=== PATIENT | female | born 1955 | race Caucasian/White ===

== ENCOUNTER 2019-05-12 13:22 | Emergency (ER) | payer MEDICARE, OTHER, SELFPAY ==
[2019-05-12 13:27] VITALS: BP 170/88; PULSE 71; RESP 18; TEMP 36.6; O2SAT 98
--- NOTE | 2019-05-12 13:39 | ED.GENADUL_ITS ---
Discharge Plan Disposition Patient Disposition: HOME Condition: Improving Discharge Details Chief Complaint: EarProblem Clinical Impression: Bilateral acute otitis media Primary Care Provider: Kavya Pendleton ED Provider: Erick Cunningham Home Meds and New Rx's Prescriptions: New amoxicillin-pot clavulanate 875-125 mg tablet 1 tab PO BID 10 Days Qty: 20 RF: 0 Continued multivitamin [Once Daily] 1 EACH tablet 1 ea PO RF: 0 metformin 500 MG tablet 500 mg PO BID RF: 0 amlodipine-benazepril [Lotrel] 1 EACH capsule 1 ea PO RF: 0 peg 400-propylene glycol [Systane (propylene glycol)] 15 ML drops 15 ml Ophthalmic RF: 0 fexofenadine-pseudoephedrine [Ameena-D 24 Hour] 1 EACH tablet extended release 24 hr 1 tab-cap PO DAILY RF: 0 omega 3-jpn-ykl-fish oil 1,000 MG capsule 2,000 mg PO RF: 0 bimatoprost [Lumigan] 5 ML drops 5 ml Ophthalmic RF: 0 turmeric root extract 500 MG capsule 500 mg PO RF: 0 calcium-vitamin D3-vitamin K 1 EACH tablet,chewable 2 ea PO DAILY RF: 0 bee pollen 550 MG capsule 550 mg PO RF: 0 ginkgo biloba leaf extract 60 MG tablet 120 mg PO RF: 0 CATNIP RF: 0 (DME) blood sugar diagnostic [FreeStyle Test] 1 EACH strip 1 ea Miscellaneous DIRECTED. RF: 0 meclizine 25 MG tablet,chewable 25 mg PO DAILY RF: 0 (DME) lancets [FreeStyle Lancets] 1 EACH misc 1 ea Miscellaneous DIRECTED RF: 0 DUO NEB 0.5 - 2.5 mg Inhalation QID RF: 0 fluticasone propionate [Flovent Diskus] 50 MCG blister with device 50 mcg Inhalation BID RF: 0 levothyroxine 25 MCG tablet 25 mcg PO DAILY RF: 0 gemfibrozil [Lopid] 600 MG tablet 600 mg PO BID RF: 0 omeprazole 20 MG capsule,delayed release(DR/EC) 20 mg PO DAILY RF: 0 estradiol [Estrace] 42.5 GM cream 1 g VG HS RF: 0 albuterol sulfate [ProAir HFA] 8.5 GM HFA aerosol inhaler 2 puff Inhalation Q4H PRN RF: 0 fluticasone propionate [Flonase Allergy Relief] 9.9 ML spray,suspension 9.9 ml NS DAILY RF: 0 cetirizine [Zyrtec] 10 MG tablet 10 mg PO DAILY RF: 0 chlordiazepoxide HCl 5 MG capsule 5 mg PO ONE TAB PM,2 TABS HS RF: 0 amlodipine-benazepril [Lotrel] 1 EACH capsule 1 tab-cap PO DAILY RF: 0 Discharge Instructions Instructions: Otitis Media (ED) Additional Instructions: Continue all previously prescribed medications. Return for worsening discomfort or any other acute concern. Take Augmentin as prescribed. Follow-up with regular doctor if not improving in 5 to 7 days time Medical Decision Making 63-year-old female with recurrent ear infections over her lifetime. 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 She presents with bilateral sinus pain and pressure with ear pain this morning. Similar to previous episodes of inner ear infection. Her vital signs are unremarkable. Her exam is consistent with a developing otitis medial likely due to\early sinusitis. She is had good success with Augmentin in the past which I will prescribe her today. She is stable and appropriate for discharge to home. HPI General Mode of arrival: ambulatory . Date/Time Provider Initiated Documentation: 05/12/19 13:34 . Limitations to Documentation: no limitations . Information obtained by: patient . History of Present Illness 63 year old F presents to the emergency department with the chief complaint of Bilateral ear pain and sinus pressure, described as moderate and similar to prior episodes, Quality is described as dull and constant, and is localized to the head. Patient reports no radiation. Patient started experiencing this day(s) and it has been constant. No relieving factors improve symptom(s), No exacerbating factors reported . Patient notes cough. Patient did receive the following treatments prior to arrival, none Related Data Home Medications Medication Instructions Recorded Confirmed Catnip 01/29/16 amlodipine-benazepril [Lotrel] 1 ea PO 01/29/16 bee pollen 550 mg PO 01/29/16 bimatoprost [Lumigan] 5 ml OPHTHALMIC script 01/29/16 calcium-vitamin D3-vitamin K 2 ea PO DAILY tab.chew 01/29/16 09/04/17 fexofenadine-pseudoephedrine 1 tab-cap PO DAILY tab-cap 01/29/16 09/04/17 [Ameena-D 24 Hour] ginkgo biloba leaf extract 120 mg PO 01/29/16 metformin 500 mg PO BID tab-cap 01/29/16 09/04/17 multivitamin [Once Daily] 1 ea PO 01/29/16 omega 4-qmi-wpj-fish oil 2,000 mg PO 01/29/16 peg 400-propylene glycol [Systane 15 ml OPHTHALMIC 01/29/16 (propylene glycol)] turmeric root extract 500 mg PO 01/29/16 Duo Neb 0.5 - 2.5 mg INHALATION QID 05/22/17 09/04/17 albuterol sulfate [ProAir HFA] 2 puff INHALATION Q4H PRN inhaler 05/22/1709/04 blood sugar diagnostic [FreeStyle strip 05/22/17 09/04/17 Test] estradiol [Estrace] 1 g VG HS 05/22/17 09/04/17 fluticasone propionate [Flonase 9.9 ml NS DAILY 05/22/17 09/04/17 Allergy Relief] fluticasone propionate [Flovent 50 mcg INHALATION BID disk 05/22/17 09/04/17 Diskus] gemfibrozil [Lopid] 600 mg PO BID tab-cap 05/22/17 09/04/17 lancets [FreeStyle Lancets] ea 05/22/17 09/04/17 levothyroxine 25 mcg PO DAILY tab-cap 05/22/17 09/04/17 meclizine 25 mg PO DAILY tab-cap 05/22/17 09/04/17 omeprazole 20 mg PO DAILY tab-cap 05/22/17 09/04/17 amlodipine-benazepril [Lotrel] 1 tab-cap PO DAILY tab-cap 09/26/17 cetirizine [Zyrtec] 10 mg PO DAILY tab-cap 09/26/17 chlordiazepoxide HCl 5 mg PO ONE TAB PM,2 TABS HS 09/26/17 tab-cap amoxicillin-pot clavulanate 1 tab PO BID 10 Days #20 tab 05/12/19 Previous Rx's Medication Instructions Recorded amoxicillin-pot clavulanate 1 tab PO BID 10 Days #20 tab 05/12/19 Allergies Allergy/AdvReac Type Severity Reaction Status Date / Time tetanus toxoid, adsorbed Allergy Intermediate edema Unverified 11/08/17 12:26 BHUMI Inhibitors Allergy Unknown Unverified 11/08/17 12:26 codeine Allergy Unverified 11/08/17 12:26 diazepam Allergy Unverified 11/08/17 12:26 egg Allergy Unverified 11/08/17 12:26 erythromycin base Allergy Unverified 11/08/17 12:26 fentanyl Allergy Unverified 11/08/17 12:26 levofloxacin Allergy Unverified 11/08/17 12:26 morphine Allergy Unverified 11/08/17 12:26 nitrofurantoin Allergy Unverified 11/08/17 12:26 [From Macrobid] nitrofurantoin Allergy Unverified 11/08/17 12:26 macrocrystalline [From Macrobid] oxycodone Allergy Unverified 11/08/17 12:26 pistachio nut Allergy Unverified 11/08/17 12:26 shellfish derived Allergy Unverified 11/08/17 12:26 Sulfa (Sulfonamide Allergy Unverified 11/08/17 12:26 Antibiotics) sulfur [From Sulfur-8] Allergy Unverified 11/08/17 12:26 tomato Allergy Unverified 11/08/17 12:26 prednisone AdvReac Unverified 11/08/17 12:26 pisachios Allergy Uncoded 09/04/17 11:16 General Stated Complaint: EarProblem URI: 5 Review of Systems Narrative: No fever, chills. Is taking liquids solids by mouth. Recent diagnosis of Canchola's palsy for which she is taking dexamethasone. No vomiting. No shortness of breath. 6 systems reviewed and otherwise negative FOR[facility], [facility] Social History Smoking/Tobacco Use Status: Never Alcohol Intake: never Drug use: Never Do you feel safe at home: Yes Do you feel safe in your relationship?: Yes Exam Narrative Exam Narrative: GEN: awake, alert, oriented 3. Pleasant, well groomed, interactive. HEAD: Normocephalic, atraumatic ENT: Mucous membranes moist, oropharynx unremarkable, tympanic membranes distended with slight erythema and loss of light reflex bilaterally, bilateral maxillary sinus tenderness to percussion. External ear exam unremarkable EYES: PERRL, EOMI NECK: Full ROM, no SUSHMA, no menigismus CHEST/RESP: Nontender, clear to auscultation bilateral, no wheeze/rhonchi/rales CARDIOVASCULAR: RRR, no murmur, rub ryan. 2+ Rad pulse bilateral ABDOMEN: Soft, nontender, no mass. +Bowel sounds EXT: Full ROM, no edema, no rash Neuro: Grossly normal neurologic exam, conversant, interactive. Psych: Speech fluent, thoughts congruent, affect normal Course Vital Signs Vital signs: Vital Signs Temperature 36.6 C 05/12/19 13:27 Pulse 71 05/12/19 13:27 Respiratory Rate 18 05/12/19 13:27 Blood Pressure 170/88 H 05/12/19 13:27 Pulse Oximetry 98 05/12/19 13:27 Temperature 36.6 C 05/12/19 13:27 Temperature Source Temporal Artery Scan 05/12/19 13:27 Pulse 71 05/12/19 13:27 Respiratory Rate 18 05/12/19 13:27 Blood Pressure 170/88 H 05/12/19 13:27 Pulse Oximetry 98 05/12/19 13:27 Oxygen Delivery Method Room Air 05/12/19 13:27 Oxygen Flow Rate 0 05/12/19 13:27 Pain Level 10 05/12/19 13:27
== END 2019-05-12 13:56 | disposition home or self-care (01) ==
PROVIDERS: Emergency Provider Emergency Medicine; PCP Nurse Practitioner
DX: H66.93 Otitis media, unspecified, bilateral (principal)
CPT/HCPCS: 99283

== ENCOUNTER 2022-02-25 01:43 | Outpatient (CLI) | payer MEDICARE, OTHER, SELFPAY ==
--- OUTSIDE RECORDS SUMMARY | 2022-02-25 01:45 | XMS_ITS ---
:1955 Author Care Team Providers Name Role Phone DR. RENALDO MEHTA Primary Care Provider [phone] DR. RENALDO MEHTA Referring Provider [phone] Allergies Code Code System Name Reaction Severity Status Onset Tripp Inhibitors ? ? Active ? 2670 RxNorm Codeine ? ? Active ? 585737 RxNorm Levaquin ? ? Active ? 502815 RxNorm Macrobid ? ? Active ? 7052 RxNorm Morphine ? ? Active ? 18250 RxNorm Percocet ? ? Active ? Tetanus and Diphtheria ? ? Active ? Toxoids Medications Name Status Start Date Stop Date ? ? albuterol sulfate concentrate 5 mg/mL(0.5 %) solution for nebulization Completed ? 11/13/2018 Inhale 0.5 mL as needed by inhalation route. apple cider vinegar Active ? Not availabl e 2 caps daily. Calcium 600 Active ? Not available chlordiazepoxide 5 mg capsule Active ? No t available Take 1 capsule 3 times a day by oral route. Estrace 0.01% (0.1 mg/gram) vaginal cream Active ? Not available Insert 1 g every week by vaginal route. Flonase Allergy Relief 50 mcg/actuation nasal spray,suspension A ctive ? Not available [place] 1 spray every day by intranasal route. Flovent Diskus 100 mcg/actuation powder for inhalation Active ? Not available Inhale 1 puff twice a day by inhalation route. Flovent Diskus 50 mcg/actuation powder for inhalation Completed ? 11/01/2017 Inhale 2 puffs twice a day by inhalation route. FreeStyle Lancets Active ? Not available FreeStyle Lite Strips Active ? Not availa ble glyburide Completed ? 08/25/2021 5 mg one tab twice daily levothyroxine 25 mcg tablet Active ? Not available take one and 1/2 tablet by mouth with p skinny glass of water every morning on hour before eating levothyroxine 50 mcg tablet Active ? Not available Take one tablet every morning at least one hour before eating, drinking any beverages, taking any other medications, vitmains or minerals. Lopid 600 mg tablet Active ? Not availabl e Take 1 tablet twice a day by oral route. Lotrel 5 mg-20 mg capsule Active ? Not av ailable Take 2 capsules every day by oral route. Lumigan 0.01 % eye drops Active ? Not franck ilable magnesium 500 mg tablet Active ? Not avai lable Take 2 tablets twice a day by oral route. meclizine 25 mg tablet Active ? Not avail able Take 1 tablet twice a day by oral route as needed. metformin 500 mg tablet Active ? Not avai lable Take 1 tablet twice a day by oral route. metoprolol succinate ER 50 mg tablet,extended release 24 hr Comp leted ? 04/25/2017 Take 1 tablet every day by oral route. nettle leaf (urtica dioica) 425 mg capsule Active ? Not available Take 1 capsule twice a day by oral route. omega 3 350 mg-dha 235 mg-epa 90 mg-fish oil 597 mg capsule,patrick y rel Active ? Not available Take 1 capsule every day by oral route. omeprazole Active ? Not available as needed oxygen Active ? Not available 4Liters when sleeping phenazopyridine 200 mg tablet Active ? No t available Take 1 tablet 3 times a day by oral route as needed. Stool Softener 100 mg tablet Active ? Not available Take 4 tablets every day by oral route in the evening. Problems Name Status Onset Date Source ? Hypothyroidism Active 05/16/2016 ? Hyperparathyroidism Active 05/16/2016 ? Hyperprolactinemia Active 05/16/2016 ? Hypertriglyceridemia Active 05/16/2016 ? Obesity Active 05/16/2016 ? Anxiety Active 05/16/2016 ? Chronic Fatigue Syndrome Active 05/16/2016 ? 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 Glaucoma Active 05/16/2016 ? Hearing Loss Active 05/16/2016 ? Essential Hypertension Active 05/16/2016 ? Acute Sinusitis Active 05/16/2016 ? Rhinitis Active 05/16/2016 ? Kidney Stone Active 05/16/2016 ? Galactorrhea Not Associated with Childbirth Active 04/18 ? Vaginitis Active 05/16/2016 ? Fibromyalgia Active 05/16/2016 ? Scoliosis Deformity of Spine Active 05/16/2016 ? 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 Type II Diabetes Mellitus Uncontrolled Active 9 ? Fatigue Active 02/20/2019 ? Type 2 Diabetes Mellitus Active ? ? Procedures None recorded. Results Lab Results Date Name Specimen Result Interpretation Description Value Range Status Address ? 08/27/2021 T4, Free, [id number] Normal Ft4 0.80 0.76-1.46 Diana fito [facility] Serum NG/dL NG/dL [facility] Laboratory & Pathology: [address] [place] [address] 08/27/2021 TSH, Serum [id number] Normal Tsh 3.067 0.360-3.74 [place] or Plasma mIU/mL 0 mIU/mL [facility]: [address] [place] [address] 08/27/2021 CMP, Serum [id number] Normal Na 139 mEq/L 136-145 [facility] or Plasma mEq/L Hospita l Laboratory & Pathology: [address] [place] [address] ? ? [id number] Normal K 4.9 mEq/L 3.5-5.1 Final [facility] mEq/L [facility] Laboratory & Pathology: [address] [place] [address] ? ? [id number] Normal Cl 104 mEq/L 98-107 Final [facility] age mEq/L [facility] Laboratory [facility] Pathology: [address] [place] [address] ? ? [id number] Normal Co2 30 mEq/L 21-31 Final [facility] ge mEq/L [facility] Laboratory & Pathology: [address] [place] [address] ? ? [id number] ? Agap 10.6 ? Final [facility] calculati Hospita l on Laboratory & Pathology: [address] [place] [address] ? ? [id number] High Glu 121 mg/dL 70-100 Final [facility] age mg/dL [facility] Laboratory & Pathology: [address] [place] [address] ? ? [id number] High Bun 28 mg/dL 7-18 mg/dL Final [facility] Laboratory & Pathology: [address] [place] [address] ? ? [id number] High Creat 1.11 0.55-1.02 Final [facility] age mg/dL mg/dL [facility] Laboratory & Pathology: [address] [place] [address] ? ? [id number] ? Bn/cr 25.4 ? Final [facility] ratio [facility] Laboratory & Pathology: [address] [place] [address] ? ? [id number] Normal Ca 9.2 mg/dL 8.5-10.1 Final [facility] mg/dL Hospital Laboratory & Pathology: [address] [place] [address] ? ? [id number] Normal Alkp 113 U/L 50-130 U/L Final Co ttage [facility] Laboratory & Pathology: [address] [place] [address] ? ? [id number] Normal Alt 25 U/L 14-59 U/L Final [facility] Laboratory & Pathology: [address] [place] [address] ? ? [id number] Normal Ast 17 U/L 15-37 U/L Final [facility] Laboratory & Pathology: [address] [place] [address] ? ? [id number] Normal Tbil 0.3 mg/dL <=1.2 Final [facility] mg/dL [facility] Laboratory & Pathology: [address] [place] [address] ? ? [id number] Normal Tp 7.4 g/dL 6.4-8.2 Final [facility] g/dL [facility] Laboratory & Pathology: [address] [place] [address] ? ? [id number] Normal Alb 3.8 g/dL 3.4-5.0 Final [facility] g/dL [facility] Laboratory & Pathology: [address] [place] [address] ? ? [id number] ? Glob 3.65 ? Final [facility] mg/dL [facility] Laboratory & Pathology: [address] [place] [address] ? ? [id number] ? A/g 1.0 calc ? Final [facility] Laboratory & Pathology: [address] [place] [address] ? ? [id number] ? Egfraa 59.42 ? Final [facility] Laboratory & Pathology: [address] [place] [address] ? ? [id number] ? Egfrnaa 49.03 ? Final [facility] Laboratory & Pathology: [address] [place] [address] 08/03/2021 Ferritin, [id number] Normal Ferr 111 NG/mL 8-252 Diana l [facility] Serum or NG/mL [facility] Plasma Laboratory & Pathology: [address] [place] [address] 08/03/2021 Iron + [id number] Normal Fe 83 ug/dL 50-170 Final [facility] Total ug/dL [facility] Iron-maddie Ching fregoso ng & Capacity Patholog y: (TIBC), Serum [facility] ? ? [id number] Normal Tibc 396 ug/dL 250-450 Final [facility] ug/dL [facility] Laboratory & Pathology: [address] [place] [address] ? ? [id number] ? Sat 20.8 % ? Final [facility] Laboratory & Pathology: [address] [place] [address] 07/20/2021 Urinalysis [id number] ABNORMAL Uwbc 2-5 /hpf 0-2 /hpf Final [facility] Microscop[facility] c & Pathology: [address] [place] [address] ? ? [id number] Normal Urbc 0-2 /hpf 0-2 /hpf Final [facility] Laboratory & Pathology: [address] [place] [address] ? ? [id number] ABNORMAL Sqep 0-2 /hpf negative Final [facility] Laboratory & Pathology: [address] [place] [address] ? ? [id number] Normal Bact none seen none seen Final [facility] /hpf /hpf [facility] Laboratory & Pathology: [address] [place] [address] ? ? [id number] ? Culture no ? Final [facility] Laboratory & Pathology: [address] [place] [address] ? ? [id number] ? Renal 0-2 /hpf ? Final [facility] Laboratory & Pathology: [address] [place] [address] 07/20/2021 Urinalysis [id number] ? Urine random ? Final [facility] Dipstick, on Laborat ory Reflex Method & Micro Pathology: [address] [place] [address] ? ? [id number] Normal Color yellow yellow Final [facility] Laboratory & Pathology: [address] [place] [address] ? ? [id number] Normal Lai clear clear Final [facility] Laboratory & Pathology: [address] [place] [address] ? ? [id number] Normal Spgr 1.015 1.015-1.[address] Laboratory & Pathology: [address] [place] [address] ? ? [id number] ? Ph 6.0 ? Final [facility] Laboratory & Pathology: [address] [place] [address] ? ? [id number] Normal Gluc negative negative Final [facility] Laboratory & Pathology: [address] [place] [address] ? ? [id number] Normal Bilb negative negative Final [facility] Laboratory & Pathology: [address] [place] [address] ? ? [id number] Normal Ket negative negative Final [facility] Laboratory & Pathology: [address] [place] [address] ? ? [id number] ABNORMAL Bld trace-int negative Final [facility] Laboratory & Pathology: [address] [place] [address] ? ? [id number] ABNORMAL Prot 2+ negative Final [facility] Laboratory & Pathology: [address] [place] [address] ? ? [id number] Normal Uro 0.2 0.2 Final [facility] E.U./dL E.U./dL [facility] Laboratory & Pathology: [address] [place] [address] ? ? [id number] Normal Nit negative negative Final [facility] Laboratory & Pathology: [address] [place] [address] ? ? [id number] ABNORMAL Leuko 1+ negative Final [facility] Laboratory & Pathology: [address] [place] [address] 06/29/2021 Vitamin [id number] Normal Vitd 49.10 >30.00 Final [facility] D2, NG/mL NG/mL [facility] 25-Hydroxy Labora tory , Serum & Pathology: [address] [place] [address] 06/29/2021 CBC W/ [id number] Normal Wbc 5.9 4.8-10.8 Final [facility] Auto Diff 10^3/mm^3 10^3/mm^3 H [facility]spital Laboratory & Pathology: [address] [place] [address] ? ? [id number] Normal Rbc 3.91 3.90-5.03 Final [facility] ge 10^6/mm^3 10^6/mm^3 Hosp ital Laboratory & Pathology: [address] [place] [address] ? ? [id number] Low Hgb 11.2 g/dL 12.0-15.5 Final [facility] g/dL Hospital Laboratory & Pathology: [address] [place] [address] ? ? [id number] Normal Hct 37 % 36-46 % Final [facility] Laboratory & Pathology: [address] [place] [address] ? ? [id number] Normal Mcv 93.9 fL 81.0-99.0 Final [facility] Laboratory & Pathology: [address] [place] [address] ? ? [id number] Normal Mch 28.6 pg 27.1-32.0 Final [facility] pg [facility] Laboratory & Pathology: [address] [place] [address] ? ? [id number] Low Mchc 31 g/dL 33-36 g/dL Final [facility] Laboratory & Pathology: [address] [place] [address] ? ? [id number] Normal Rdw 13.3 % 11.6-14.8 Final [facility] Laboratory [facility] Pathology: [address] [place] [address] ? ? [id number] Normal Platele 258 150-400 Final [facility] ts 10^3/mm^3 10^3/mm^3 Hosp ital Laboratory & Pathology: [address] [place] [address] ? ? [id number] Normal Ne# 2.82 1.20-6.70 Final [facility] 10^3/mm^3 10^3/mm^3 Hosp ital Laboratory & Pathology: [address] [place] [address] ? ? [id number] Normal Ly# 2.08 1.20-3.40 Final [facility] 10^3/mm^3 10^3/mm^3 Hosp ital Laboratory & Pathology: [address] [place] [address] ? ? [id number] Normal Mo# 0.64 0.11-0.70 Final [facility] 10^3/mm^3 10^3/mm^3 Hosp ital Laboratory & Pathology: [address] [place] [address] ? ? [id number] Normal Eo# 0.30 0.00-0.70 Final [facility] 10^3/mm^3 10^3/mm^3 Hosp ital Laboratory & Pathology: [address] [place] [address] ? ? [id number] Normal Ba# 0.03 0.00-0.20 Final [facility] 10^3/mm^3 10^3/mm^3 Hosp ital Laboratory & Pathology: [address] [place] [address] ? ? [id number] Normal Neut% 48 % per 40-74 % Final [facility] 100 WBC per 100 Hospital WBC Laboratory & Pathology: [address] [place] [address] ? ? [id number] Normal Ly% 35 % per 19-48 % Final [facility] 100 WBC per 100 Hospital WBC Laboratory & Pathology: [address] [place] [address] ? ? [id number] High Mo% 10.9 % 3.0-10.0 % Final Cott age per 100 per 100 Hospital WBC WBC Laboratory & Pathology: [address] [place] [address] ? ? [id number] Normal Eo% 5.1 % per 1.0-7.0 % Final [facility] 100 WBC per 100 Hospital WBC Laboratory & Pathology: [address] [place] [address] ? ? [id number] Normal Ba% 0.5 % per 0.0-2.0 % Final [facility] 100 WBC per 100 Hospital WBC Laboratory & Pathology: [address] [place] [address] 06/29/2021 CMP, Serum [id number] Normal Na 144 mEq/L 136-145 [facility] [place] or Plasma mEq/L Hospita l Laboratory & Pathology: [address] [place] [address] ? ? [id number] Normal K 4.1 mEq/L 3.5-5.1 Final [facility] mEq/L [facility] Laboratory & Pathology: [address] [place] [address] ? ? [id number] Normal Cl 105 mEq/L 98-107 Final [facility] age mEq/L [facility] Laboratory & Pathology: [address] [place] [address] ? ? [id number] Normal Co2 27 mEq/L 21-31 [facility] Laboratory & Pathology: [address] [place] [address] ? ? [id number] ? Agap 15.3 ? Final [facility] calculati Hospita l on Laboratory & Pathology: [address] [place] [address] ? ? [id number] High Glu 129 mg/dL 70-100 Final [facility] age mg/dL Hospital Laboratory & Pathology: [address] [place] [address] ? ? [id number] High Bun 33 mg/dL 7-18 mg/dL Final [facility] Laboratory & Pathology: [address] [place] [address] ? ? [id number] High Creat 1.20 0.55-1.02 Final [facility] age mg/dL mg/dL [facility] Laboratory & Pathology: [address] [place] [address] ? ? [id number] ? Bn/cr 27.3 ? Final [facility] ratio Hospital Laboratory & Pathology: [address] [place] [address] ? ? [id number] Normal Ca 9.5 mg/dL 8.5-10.1 Final [facility] mg/dL [facility] Laboratory & Pathology: [address] [place] [address] ? ? [id number] Normal Alkp 104 U/L 50-130 U/L Final [facility] Laboratory & Pathology: [address] [place] [address] ? ? [id number] Normal Alt 28 U/L 14-59 U/L Final [facility] Laboratory & Pathology: [address] [place] [address] ? ? [id number] Normal Ast 16 U/L 15-37 U/L Final [facility] Laboratory & Pathology: [address] [place] [address] ? ? [id number] Normal Tbil 0.2 mg/dL <=1.2 Final [facility] mg/dL [facility] Laboratory & Pathology: [address] [place] [address] ? ? [id number] Normal Tp 7.8 g/dL 6.4-8.2 Final [facility] g/dL [facility] Laboratory & Pathology: [address] [place] [address] ? ? [id number] Normal Alb 3.7 g/dL 3.4-5.0 Final [facility] g/dL [facility] Laboratory & Pathology: [address] [place] [address] ? ? [id number] ? Glob 4.06 ? Final [facility] mg/dL [facility] Laboratory & Pathology: [address] [place] [address] ? ? [id number] ? A/g 0.9 calc ? Final [facility] Laboratory & Pathology: [address] [place] [address] ? ? [id number] ? Egfraa 54.48 ? Final [facility] Laboratory & Pathology: [address] [place] [address] ? ? [id number] ? Egfrnaa 44.95 ? Final [facility] Laboratory & Pathology: [address] [place] [address] 06/29/2021 Lipid [id number] High Chol 200 mg/dL <200 mg/dL [facility]: [address] [place] [address] ? ? [id number] Normal Hdl 55 mg/dL 40-60 Final [facility] mg/dL [facility] Laboratory & Pathology: [address] [place] [address] ? ? [id number] High Trig 164 mg/dL 30-150 Final [facility] mg/dL [facility] Laboratory & Pathology: [address] [place] [address] ? ? [id number] High LDL(C) 112 calc <100 calc Final [facility] Laboratory & Pathology: [address] [place] [address] ? ? [id number] ? Risk 3.6 calc ? Final [facility] Laboratory & Pathology: [address] [place] [address] 06/29/2021 TSH, Serum [id number] Normal Tsh 2.207 0.360-3.74 [place] or Plasma mIU/mL 0 mIU/mL [facility] Pathology: [address] [place] [address] 02/16/2021 Glucose, Blood ? Blood 146 ? ? Rhc - Fingerstic capillary Glucose: S pecialty: k, Blood mg/dl 103 [facility] 02/12/2021 T4, Free, [id number] Normal Ft4 0.82 0.76-1.46 Diana l [facility] NG/dL NG/dL [facility] Laboratory & Pathology: [address] [place] [address] 02/12/2021 TSH, Serum [id number] Normal Tsh 1.632 0.360-3.74 [place] or Plasma mIU/mL 0 mIU/mL Hos[facility] Laboratory & Pathology: [address] [place] [address] 02/12/2021 BMP, Serum [id number] High Glu 108 mg/dL 70-100 Fin [place] or Plasma mg/dL [facility] Laboratory & Pathology: [address] [place] [address] ? ? [id number] High Bun 36 mg/dL 7-18 mg/dL Final [facility] Laboratory & Pathology: [address] [place] [address] ? ? [id number] High Creat 1.30 0.55-1.02 Final [facility] age mg/dL mg/dL [facility] Laboratory & Pathology: [address] [place] [address] ? ? [id number] High Na 146 mEq/L 136-145 Final [place] mEq/L [facility] Laboratory & Pathology: [address] [place] [address] ? ? [id number] Normal K 4.8 mEq/L 3.5-5.1 Final [place] mEq/L [facility] Laboratory & Pathology: [address] [place] [address] ? ? [id number] Normal Cl 106 mEq/L 98-107 Final Cott age mEq/L [facility] Laboratory & Pathology: [address] [place] [address] ? ? [id number] Normal Co2 31 mEq/L 21-31 [facility] Laboratory & Pathology: [address] [place] [address] ? ? [id number] Normal Ca 9.8 mg/dL 8.5-10.1 Final [facility] mg/dL [facility] Laboratory & Pathology: [address] [place] [address] ? ? [id number] ? Agap 13.3 ? Final [facility] calculati Hospita on Laboratory & Pathology: [address] [place] [address] ? ? [id number] ? Bn/cr 27.5 ? Final [facility] Laboratory & Pathology: [address] [place] [address] ? ? [id number] ? Egfraa 49.67 ? Final [facility] Laboratory & Pathology: [address] [place] [address] ? ? [id number] ? Egfrnaa 40.98 ? Final [facility] Laboratory & Pathology: [address] [place] [address] 08/19/2020 T4, Free, P Normal Ft4 0.85 0.76-1.46 Final [facility] Serum NG/dL NG/dL [facility] Laboratory & Pathology: [address] [place] [address] 08/19/2020 TSH, Serum P Normal Tsh 1.862 0.360-3.74 Final [facility] or Plasma mIU/mL 0 mIU/mL [facility] Pathology: [address] [place] [address] 08/19/2020 BMP, Serum P High Glu 122 mg/dL 70-100 Final [facility] or [facility]ology: [address] [place] [address] ? ? P High Bun 27 mg/dL 7-18 mg/dL Final [facility] Laboratory & Pathology: [address] [place] [address] ? ? P High Creat 1.14 0.55-1.02 Final [facility] mg/dL mg/dL [facility] Laboratory & Pathology: [address] [place] [address] ? ? P Normal Na 145 mEq/L 136-145 Final [facility] mEq/L [facility] Laboratory & Pathology: [address] [place] [address] ? ? P Normal K 4.7 mEq/L 3.5-5.1 Final [facility] mEq/L [facility] Laboratory & Pathology: [address] [place] [address] ? ? P Normal Cl 106 mEq/L 98-107 Final [facility] mEq/L [facility] Laboratory & Pathology: [address] [place] [address] ? ? P High Co2 33 mEq/L 21-31 Final [facility] mEq/L [facility] Laboratory & Pathology: [address] [place] [address] ? ? P High Ca 10.2 8.5-10.1 Final [facility] mg/dL mg/dL [facility] Laboratory & Pathology: [address] [place] [address] ? ? P ? Agap 11.1 ? Final [facility] calculati Hospita l on Laboratory & Pathology: [address] [place] [address] ? ? P ? Bn/cr 23.9 ? Final [facility] Laboratory & Pathology: [address] [place] [address] ? ? P ? Egfraa 57.80 ? Final [facility] Laboratory & Pathology: [address] [place] [address] ? ? P ? Egfrnaa 47.69 ? Final [facility] Laboratory & Pathology: [address] [place] [address] 08/19/2020 Fructosami S Normal Fructos 268 0-285 Final [facility] ne, Serum amine umol/L umol/L Hospita l Laboratory & Pathology: [address] [place] [address] 02/17/2020 T4, Free, P Normal Ft4 1.21 0.76-1.46 Final [facility] Serum NG/dL NG/dL [facility] Laboratory & Pathology: [address] [place] [address] 02/17/2020 TSH, Serum P Normal Tsh 1.534 0.360-3.74 Final [facility] or Plasma mIU/mL 0 mIU/mL [facility] Laboratory [facility] Pathology: [address] [place] [address] 02/17/2020 BMP, Serum P High Glu 112 mg/dL 70-100 Final [facility] or Plasma mg/dL Hospita l Laboratory & Pathology: [address] [place] [address] ? ? P High Bun 31 mg/dL 7-18 mg/dL Final [facility] Laboratory & Pathology: [address] [place] [address] ? ? P High Creat 1.17 0.55-1.02 Final [facility] mg/dL mg/dL [facility] Laboratory & Pathology: [address] [place] [address] ? ? P Normal Na 142 mEq/L 136-145 Final [facility] e mEq/L [facility] Laboratory & Pathology: [address] [place] [address] ? ? P Normal K 4.6 mEq/L 3.5-5.1 Final [facility] e mEq/L [facility] Laboratory & Pathology: [address] [place] [address] ? ? P Normal Cl 104 mEq/L 98-107 Final [facility] mEq/L [facility] Laboratory & Pathology: [address] [place] [address] ? ? P Normal Co2 29 mEq/L 21-31 Final [facility] mEq/L [facility] Laboratory & Pathology: [address] [place] [address] ? ? P Normal Ca 9.6 mg/dL 8.5-10.1 Final [facility] ge mg/dL [facility] Laboratory & Pathology: [address] [place] [address] ? ? P ? Agap 14.0 ? Final [facility] calculati Hospita l on Laboratory & Pathology: [address] [place] [address] ? ? P ? Bn/cr 26.5 ? Final [facility] Laboratory & Pathology: [address] [place] [address] ? ? P ? Egfraa 56.26 ? Final [facility] Laboratory & Pathology: [address] [place] [address] ? ? P ? Egfrnaa 46.42 ? Final [facility] Laboratory & Pathology: [address] [place] [address] 02/17/2020 Fructosami S Normal Fructos 237 0-285 Final [facility] ne, Serum amine umol/L umol/L Hospita l Laboratory & Pathology: [address] [place] [address] 08/16/2019 Phosphorus P Normal Phos 4.2 mg/dL 2.3-4.7 Final [facility] , Serum or mg/dL Hospit al Plasma Laboratory & Pathology: [address] [place] [address] 08/16/2019 T4, Free, P Normal Ft4 0.85 0.76-1.46 Final [facility] Serum NG/dL NG/dL [facility] Laboratory & Pathology: [address] [place] [address] 08/16/2019 TSH, Serum P Normal Tsh 3.534 0.360-3.74 Final [facility] or Plasma mIU/mL 0 mIU/mL [facility] [place] Laboratory & Pathology: [address] [place] [address] 08/16/2019 BMP, Serum P High Glu 142.0 70.0-100.0 Final [facility] or Plasma mg/dL mg/dL Hospita l Laboratory & Pathology: [address] [place] [address] ? ? P High Bun 26 mg/dL 7-18 mg/dL Final [facility] Laboratory & Pathology: [address] [place] [address] ? ? P High Creat 1.13 0.55-1.02 Final [facility] mg/dL mg/dL Hospital Laboratory & Pathology: [address] [place] [address] ? ? P Normal Na 143 mEq/L 136-145 Final [facility] e mEq/L [facility] Laboratory & Pathology: [address] [place] [address] ? ? P Normal K 4.6 mEq/L 3.5-5.1 Final [facility] e mEq/L [facility] Laboratory & Pathology: [address] [place] [address] ? ? P Normal Cl 103 mEq/L 98-107 Final [facility] mEq/L [facility] Laboratory & Pathology: [address] [place] [address] ? ? P Normal Co2 28 mEq/L 21-32 Final [facility] mEq/L [facility] Laboratory & Pathology: [address] [place] [address] ? ? P Normal Ca 9.6 mg/dL 8.5-10.1 Final [facility] ge mg/dL [facility] Laboratory & Pathology: [address] [place] [address] ? ? P ? Agap 16.1 ? Final [facility] calculati Hospita l on Laboratory & Pathology: [address] [place] [address] ? ? P ? Bn/cr 23.4 ? Final [facility] Laboratory & Pathology: [address] [place] [address] ? ? P ? Egfraa 58.57 ? Final [facility] Laboratory & Pathology: [address] [place] [address] ? ? P ? Egfrnaa 48.32 ? [facility] Laboratory & Pathology: [address] [place] [address] 08/16/2019 Cortisol, S ? Paramjit 9.8 ug/dL ? Final [facility] Serum or [facility] Plasma Laboratory & Pathology: [address] [place] [address] 08/16/2019 Fructosami S Normal Fructos 251 0-285 Final [facility] ne, Serum amine umol/L umol/L Hospita l Laboratory & Pathology: [address] [place] [address] 08/16/2019 PTH P Normal PTH, 16 pg/mL 15-65 Final [facility] age (Parathyro Intact pg/mL Hospit al id Laboratory Hormone), & Intact, Pathology : Serum or 90 Plasma [facility] 08/16/2019 Prolactin, S High Prol 46.5 4.8-23.3 Final [facility] Serum NG/mL NG/mL Hospital Laboratory & Pathology: [address] [place] [address] 02/19/2019 T4, Free, P Normal Ft4 0.80 0.76-1.46 Final [facility] Serum NG/dL NG/dL [facility] Laboratory & Pathology: [address] [place] [address] 02/19/2019 TSH, Serum P Normal Tsh 2.099 0.360-3.74 Final [facility] or Plasma mIU/mL 0 mIU/mL [facility] [place] Laboratory & Pathology: [address] [place] [address] 11/13/2018 BMP, Serum P High Glu 188.0 70.0-100.0 Final [facility] or Plasma mg/dL mg/dL Hospita l Laboratory & Pathology: [address] [place] [address] ? ? P High Bun 26 mg/dL 7-18 mg/dL Final [facility] Laboratory & Pathology: [address] [place] [address] ? ? P High Creat 1.03 0.55-1.02 Final [facility] mg/dL mg/dL [facility] Laboratory & Pathology: [address] [place] [address] ? ? P Normal Na 143 mEq/L 136-145 Final [facility] e mEq/L [facility] Laboratory & Pathology: [address] [place] [address] ? ? P Normal K 4.4 mEq/L 3.5-5.1 Final [facility] e mEq/L [facility] Laboratory & Pathology: [address] [place] [address] ? ? P Normal Cl 105 mEq/L 98-107 Final [facility] mEq/L [facility] Laboratory & Pathology: [address] [place] [address] ? ? P Normal Co2 30 mEq/L 21-32 Final [facility] mEq/L [facility] Laboratory & Pathology: [address] [place] [address] ? ? P Normal Ca 9.9 mg/dL 8.5-10.1 Final [facility] Laboratory & Pathology: [address] [place] [address] ? ? P ? Agap 13.6 ? Final [facility] Laboratory & Pathology: [address] [place] [address] ? ? P ? Bn/cr 25.1 calc ? [facility] Laboratory & Pathology: [address] [place] [address] ? ? P ? Egfraa 65.38 ? Final [facility] Laboratory & Pathology: [address] [place] [address] ? ? P ? Egfrnaa 53.95 ? Final [facility] Laboratory & Pathology: [address] [place] [address] 11/13/2018 T4, Free, P Normal Ft4 0.76 0.76-1.46 Final [facility] Serum NG/dL NG/dL [facility] Laboratory & Pathology: [address] [place] [address] 11/13/2018 TSH, Serum P Normal Tsh 1.637 0.360-3.74 Final [facility] or Plasma mIU/mL 0 mIU/mL [facility] Laboratory & Pathology: [address] [place] [address] 11/13/2018 Cortisol, S ? Paramjit 9.5 ug/dL ? Final [facility] Serum or [facility] Plasma Laboratory & Pathology: [address] [place] [address] 11/08/2018 Lipid P Normal Chol 198 mg/dL <200 mg/dL Final [facility] Panel W/ Hospital Direct Laboratory LDL, Serum & Pathology: [address] [place] [address] ? ? P Normal Hdl 49 mg/dL 40-60 Final [facility] mg/dL [facility] Laboratory & Pathology: [address] [place] [address] ? ? P High Trig 201 mg/dL 30-150 Final [facility] mg/dL [facility] Laboratory & Pathology: [address] [place] [address] ? ? P High LDL(C) 109 calc <100 calc Final [facility] Laboratory & Pathology: [address] [place] [address] ? ? P ? Risk 4.0 calc ? Final [facility] Laboratory & Pathology: [address] [place] [address] 04/30/2018 T4, Free, ? FT4 0.82 0.76-1.46 Final [facility] Serum (Free NG/dL NG/dL Hospital Thyroxin Laborato ry e) & Pathology: [address] [place] [address] 04/30/2018 TSH, Serum ? Tsh 2.90 0.36-3.74 Final [facility] or Plasma mIU/mL mIU/mL Hospita l Laboratory & Pathology: [address] [place] [address] 11/01/2017 Glucose, Blood ? Blood 119 ? ? Rhc - Fingerstic capillary Glucose: S pecialty: k, Blood mg/dl 103 [facility] 10/26/2017 T4, Free, Low FT4 0.67 0.76-1.46 Final [facility] Serum (Free NG/dL NG/dL Hospital Thyroxin Laborato ry e) & Pathology: 90 [facility] 10/26/2017 TSH, Serum High Tsh 4.34 0.36-3.74 Final [facility] Plasma mIU/mL mIU/mL Hospita l Laboratory & Pathology: 90 [facility] 04/19/2017 TSH, Serum ? Thyroid 2.41 0.36-3.74 Diana l *DO Not or Plasma Stimulat mciu/mL mciu/mL Use * Ch ing Lab: 90 Hormone [facility] 04/19/2017 T4, Free, ? Free T4 0.83 0.76-1.46 Final *DO Not Serum NG/dL NG/dL Use* Ch Lab: 90 [facility] ? Glucose, ? Blood 83 ? ? Rhc - Fingerstic Glucose: Spec ialty: k, Blood mg/dl 103 [facility] ? Glucose, Blood ? Blood 180 ? ? Rhc - Fingerstic capillary Glucose: S pecialty: k, Blood mg/dl 103 [facility] Past Encounters 10/11/2021 Hypothyroidism; Type II Diabetes Mellitu s Uncontrolled; Fatigue; Hypersomnia; Weight Gain Atul Mcintyre MD-FACE: [address] [place] [address], Ph. 02/16/2021 Hypothyroidism; Type II Diabetes Mellitu s Uncontrolled; Fatigue; Hypersomnia Atul Mcintyre MD-FACE: [address] [place] [address], Ph. Social History Tobacco Smoking Status Former Smoker Notes: During t eena yrs. Vaccine List None recorded. Plan of Care Patient Goals 1. Maintain Euthyryoid status and liliane l levels 2. Reduce weight gradually over next six months. Gradual loss. 1. Maintain Euthyryoid status and liliane l levels 2. Reduce weight gradually over next six months. Gradual loss. Patient Instructions Increas Levothyroxine 25 mcg two (2) ta blet daily. then go to levothyroxine 50 mcg one tab let by mouth daily. Encourage gradual weight loss. Encourage increase light physcial activi ties; light aerobic eg. walking, and stretching. Encourage limited carbohydrates (Restric t Bread,, Noodles, Pasta, Potatoes, Rice), more Fiber (more green vegetables), and limit total calories. . SHOULD TEST YOUR BG and KEEP RECORDS. ---Test BG pre breakfast at least every two or three days ----Tests BG pre/ two hour post one meal every 4 to 6 days, vary different meal each time KEEP RECORD of BG, show to PCP and show to me. ___ Go for Thyroid and other labs Mid December 16 022 Continue Levothyroxine 25 mcg 1 and 1/2 tablet daily. (use Pill split to break in half) Encourage gradual weight loss. Encourage increase light physcial activi ties; light aerobic eg. walking, and stretching. Encourage limited carbohydrates (Restric t Bread,, Noodles, Pasta, Potatoes, Rice), more Fiber (more green vegetables), and limit total calories. . SHOULD TEST YOUR BG and KEEP RECORDS. ---Test BG pre breakfast at least every two or three days ----Tests BG pre/ two hour post one meal every 4 to 6 days, vary different meal each time KEEP RECORD of BG, show to PCP and show to me. ___ Go for Thyroid and other labs two weeks prior to next visit a) Blood fasting in morning Will see in six months. Aug 2021 . Reminders Provider Appointments None recorded. ? ? Lab None recorded. ? ? Referral None recorded. ? ? Procedures None recorded. ? ? Surgeries None recorded. ? ? Imaging None recorded. ? ? Vitals 10/11/2021 12:30PM ENDOCRINOLOGY FOLLOW UP 30 Height Weight BMI 165.1 cm 100.02 kg 36.7 kg/m2 02/16/2021 01:00PM ENDOCRINOLOGY FOLLOW UP 30 Height Weight BMI Blood Pressure 165.1 cm 97.18 kg 35.7 kg/m2 128/72 mm[Hg] 08/25/2020 01:30PM ENDOCRINOLOGY FOLLOW UP 30 Height Weight BMI Blood Pressure 165.1 cm 127/90 mm[Hg] 02/18/2020 01:00PM ENDOCRINOLOGY FOLLOW UP 30 Height Weight BMI Blood Pressure 165.1 cm 99.79 kg 36.6 kg/m2 142/80 mm[Hg] 08/20/2019 11:00AM ENDOCRINOLOGY FOLLOW UP 30 Height Weight BMI Blood Pressure 165.1 cm 103.33 kg 37.9 kg/m2 126/84 mm[Hg] 02/20/2019 11:00AM ENDOCRINOLOGY FOLLOW UP 30 Height Weight BMI Blood Pressure 165.1 cm 104.1 kg 38.2 kg/m2 124/80 mm[Hg] 11/13/2018 01:30PM ENDOCRINOLOGY FOLLOW UP 30 Height Weight BMI Blood Pressure 165.1 cm 103.42 kg 37.9 kg/m2 116/74 mm[Hg] 05/08/2018 02:00PM ENDOCRINOLOGY FOLLOW UP 30 Height Weight BMI Blood Pressure 165.1 cm 102.06 kg 37.4 kg/m2 128/74 mm[Hg] 11/01/2017 11:30AM ENDOCRINOLOGY FOLLOW UP 30 Height Weight BMI 165.1 cm 102.51 kg 37.6 kg/m2 04/25/2017 11:00AM ENDOCRINOLOGY FOLLOW UP 30 Height Weight BMI Blood Pressure 165.1 cm 102.97 kg 37.8 kg/m2 124/74 mm[Hg] 10/18/2016 11:00AM ENDOCRINOLOGY FOLLOW UP 30 Height Weight BMI Blood Pressure 165.1 cm 102.51 kg 37.6 kg/m2 140/60 mm[Hg] 05/17/2016 11:00AM ENDOCRINOLOGY FOLLOW UP 30 Height Weight BMI Blood Pressure 165.1 cm 103.42 kg 37.9 kg/m2 136/68 mm[Hg]
== END 2022-02-25 01:44 | disposition home or self-care (01) ==
LOC: RT 01:44
PROVIDERS: PCP Nurse Practitioner; Visit Provider Nurse Practitioner
DX: R06.09 Other forms of dyspnea (principal)
CPT/HCPCS: 94618

== ENCOUNTER 2022-07-21 12:06 | Emergency (ER) | payer MEDICARE, OTHER, SELFPAY ==
[2022-07-21 12:15] VITALS: BP 214/98; PULSE 75; RESP 20; TEMP 36.6; O2SAT 99
--- NOTE | 2022-07-21 12:30 | RT.EKG_ITS ---
APPROVED REPORT Exam: Resting ECG Reason for Exam: PALPITATIONS Patient Location: E HR:76 bpm ECG Measurements Heart Rate 76 AXIS WV 193 P 43 QRSd 118 QRS -40 QT 440 T 46 QTc 489 Conclusion Sinus rhythm...normal P axis, V-rate 60- 99 Multiform ventricular premature complexes...short R-R, variable morphology Incomplete left bundle branch block...QRSd>110mS, terminal axis(-90,-1) Left ventricular hypertrophy...multiple LVH criteria
[2022-07-21 12:39] LABS: Bilirubin Negative (Negative); Blood Trace-intact (Negative); Clarity Clear (Clear); Glucose Negative (Negative); Ketones Negative (Negative); Leukocyte Esterase Small (Negative); Nitrite Negative (Negative); Specific Gravity >= 1.030 (1.005-1.025); Urobilinogen 0.2 EU/dL (Up TO 0.2)
[2022-07-21 12:52] LABS: Bacteria Rare HPF (Negative); C & S Indicated? No/Sq. Contamination; Casts Negative LPF (Negative); Crystals Negative HPF (Negative); Epithelial Cells Moderate HPF (Negative); Mucus Trace (Negative); RBC 0-2 HPF (0-2)
--- NOTE | 2022-07-21 13:30 | DI.CT_ITS ---
Exam(s) CT RENAL COLIC WO EXAM: CT RENAL COLIC WO CLINICAL HISTORY: left flank pain. TECHNIQUE: Imaging Protocol: Axial computed tomography images with coronal and sagittal reformatted images were created and reviewed CONTRAST MATERIAL: Intravenous: none Oral: None COMPARISON: CT CTA CHEST (PE) HRCT from 02/11/2016 FINDINGS: VISUALIZED LUNG BASES: No nodules evident. No pleural effusions.. ABDOMEN: There is no ascites. LIVER: There are no obvious focal hepatic lesions evident of this noninfused study. GALLBLADDER/BILIARY: Gallbladder surgically absent. CBD not dilated. CBD is not dilated. PANCREAS: No evidence of pancreatic mass nor dilatation of the pancreatic duct. SPLEEN: Spleen is not enlarged. No obvious intrasplenic lesions. x ADRENALS: There are no significant adrenal masses. KIDNEYS:In the right kidney there is a calculus in the renal pelvis measuring 10 x 8 millimeters. Thi s is actually at the junction of a midpole infundibulum and the renal pelvis. Another tiny calculus i s noted in the parenchyma of the kidney and there is a small cyst evident. Is no true hydronephrosis hydroureter. There is a 5 millimeter calculus in the inferior pole of the opposite-left kidney as wel l as a few left kidney area hypodensities are probably cysts but should be confirmed with ultrasound. Both ureters are not dilated and there are no calculi in the urinary bladder. A phlebolith is noted in the lower right pelvis adjacent to the nondilated lower right ureter.. ABDOMINAL AORTA: Abdominal aorta is not enlarged. LYMPH NODES: There is no retroperitoneal nor paraaortic adenopathy. ABDOMINAL WALL: There is a radiopaque anterior abdominal wall midline hernia repair mesh. No active h ernia evident at this time. GI: There is no evidence of bowel obstruction, free air, nor abscess. There diverticuli throughout the colon, appearing be numerous in the the ascending-right colon as wel l as in the cecum. There is no evidence of obvious diverticulitis. The appendix appears to be surgica lly absent. PELVIS: LYMPH NODES: There is no intrapelvic nor inguinal adenopathy. GI: No evidence of appendicitis.Multiple sigmoid diverticuli without evidence of obvious diverticulit is. URINARY BLADDER: No calculi nor obvious masses evident REPRODUCTIVE: Uterus is surgically absent. There are no abnormal adnexal masses. OSSEOUS: No significant osseous lesions. Multilevel chronic degenerative disc disease in the lumbar spine noted. No osseous lesions. IMPRESSION: 1. There is 10 x 8 millimeter calculus in the right kidney at the junction of the mid pole infundibul um and renal pelvis. No true hydronephrosis nor hydroureter. Nonobstructive calculi are also noted in the opposite-left kidney. There are no calculi in nondilated ureters nor within the urinary bladder. 2. There is diverticulosis of both sides of the colon but no evidence of obvious acute diverticulitis . 3. Gallbladder and appendix are surgically absent and there has also been prior hysterectomy. No evid ence of bowel obstruction, free air, nor abscess. Called by myself to ER physician RADIATION DOSE DELIVERED: 1,152.55mGy.cm Total DLP DATA REPOSITORY: All CT scans at this facility are submitted to the National Radiology Data Registry (NRDR) Dose Index Registry (DIR) with the [employer] ([employer]). RADIATION OPTIMIZATION: All CT scans at this facility use at least one of these dose optimization te chniques: automated exposure control; mA and/or kV adjustment per patient size (includes targeted exa ms where dose is matched to clinical indication); or iterative reconstruction.
[2022-07-21 13:50] LABS: Abs Immature Grans 0.01 10^3/uL (0.0-0.06); Absolute Basophil Count 0.03 10^3/uL (0.0-0.2); Absolute Eosinophil Count 0.18 10^3/uL (0.0-0.7); Absolute Lymphocyte Count 1.59 10^3/uL (1.2-3.4); Absolute Monocyte Count 0.59 10^3/uL (0.1-0.8); Absolute Neutrophil Count 4.23 10^3/uL (1.2-6.7); Basophils % 0.5; Eosinophils % 2.7; HCT 38.2 % (36.0-46.0); HGB 12.4 g/dL (11.2-15.7); Immature Grans % 0.2; MCH 29.7 pg (27.0-33.0); MCHC 32.5 % (32.0-36.0); MCV 92 fL (80-95); MPV 10.1 fL (8.0-11.0); Monocytes % 8.9; Neutrophils % 63.7; Platelet Count 257 10^3/uL (130-400); RBC 4.17 10^6/uL (3.93-5.22); RDW 12.6 % (11.7-14.6); RDW-SD 41.5 fL; WBC 6.63 10^3/uL (4.4-10.8)
[2022-07-21 14:12] LABS: Lipase 306 U/L (73-393)
[2022-07-21 14:14] LABS: ALT 19 U/L (14-59); AST 16 U/L (15-37); Albumin 4.1 g/dL (3.4-5.0); Anion Gap 9.9 mmol/L (3-11); BUN 28 mg/dL (7-18); Bilirubin, Total 0.4 mg/dL (0.2-1.0); CO2 29.1 mmol/L (21.0-32.0); CREATININE 1.3 mg/dL (0.55-1.02); Calcium 9.8 mg/dL (8.5-10.1); Chloride 104 mmol/L (98-107); Estimated GFR 44.79 (mL/min/1.73m2); Glucose 122 mg/dL (74-106); Potassium 3.7 mmol/L (3.5-5.1); Sodium 143 mmol/L (136-145); Total Protein 8.6 g/dL (6.4-8.2)
--- NOTE | 2022-07-21 14:18 | ED.GENADUL_ITS ---
Discharge Plan Disposition Patient Disposition: Home Condition: Stable Discharge Details Clinical Impression: Acute UTI, Right lower quadrant abdominal pain, Nephrolithiasis Primary Care Provider: Kavya Pendleton ED Provider: Oliver Meza Home Meds and New Rx's Prescriptions: New cefpodoxime 200 mg tablet 200 mg PO BID Qty: 20 0RF Rx Instructions: must administer with a meal/food No Action multivitamin [Once Daily] 1 EACH tablet 1 ea PO metformin 500 MG tablet 500 mg PO BID amlodipine-benazepril [Lotrel] 1 EACH capsule 1 ea PO peg 400-propylene glycol [Systane (propylene glycol)] 15 ML drops 15 ml Ophthalmic fexofenadine-pseudoephedrine [Ameena-D 24 Hour] 1 EACH tablet extended release 24 hr 1 tab-cap PO DAILY omega 2-urh-hfy-fish oil 1,000 MG capsule 2,000 mg PO bimatoprost [Lumigan] 5 ML drops 5 ml Ophthalmic turmeric root extract 500 MG capsule 500 mg PO calcium-vitamin D3-vitamin K 1 EACH tablet,chewable 2 ea PO DAILY bee pollen 550 MG capsule 550 mg PO ginkgo biloba leaf extract 60 MG tablet 120 mg PO CATNIP (DME) blood sugar diagnostic [FreeStyle Test] 1 EACH strip 1 ea Miscellaneous DIRECTED. meclizine 25 MG tablet,chewable 25 mg PO DAILY (DME) lancets [FreeStyle Lancets] 1 EACH misc 1 ea Miscellaneous DIRECTED DUO NEB 0.5 - 2.5 mg Inhalation QID fluticasone propionate [Flovent Diskus] 50 MCG blister with device 50 mcg Inhalation BID levothyroxine 25 MCG tablet 25 mcg PO DAILY Label Comments: 11/08/17 PT. STATES SHE IS TAKING 25 MG TAB. 1.5 TAB QD. gemfibrozil [Lopid] 600 MG tablet 600 mg PO BID omeprazole 20 MG capsule,delayed release(DR/EC) 20 mg PO DAILY estradiol [Estrace] 42.5 GM cream 1 g VG HS albuterol sulfate [ProAir HFA] 8.5 GM HFA aerosol inhaler 2 puff Inhalation Q4H PRN fluticasone propionate [Flonase Allergy Relief] 9.9 ML spray,suspension 9.9 ml NS DAILY cetirizine [Zyrtec] 10 MG tablet 10 mg PO DAILY chlordiazepoxide HCl 5 MG capsule 5 mg PO ONE TAB PM,2 TABS HS amlodipine-benazepril [Lotrel] 1 EACH capsule 1 tab-cap PO DAILY Discharge Instructions Instructions: Kidney Stones (ED), Urinary Tract Infection in Women (ED) Additional Instructions: Medication reconciliation could not be performed today. Please take your medications as prescribed. If you are taking a proton pump inhibitor like omeprazole, I recommend that you hold this medication until completion of antibiotic. Please discuss this with your doctor. Please follow-up with urology and your primary care physician. Call tomorrow. You should have repeat abdominal exam performed within the next 48 hours. Please take full course of antibiotic as prescribed. You were given the initial dose here in the emergency department this afternoon. Your next dose is tomorrow morning. Return to the ER immediately for any worsening or new concerning symptoms. Referrals: [facility] [Provider Group] Kavya Pendleton [Primary Care Provider] - Discharge Data Discharge Date/Time-TO BE ENTERED AT DEPARTURE: 07/21/22 15:46 Medical Decision Making 67-year-old female status post appendectomy here with pain in her right lower abdomen for the past couple days, concern for renal stone. Patient hemodynamically stable. Consider acute surgical pathology including obstructed stone. CT of the abdomen pelvis was obtained and reveals large renal stone, renal pelvis, nonobstructing, few renal stones on the left nonobstructing, multiple diverticuli with no surrounding inflammatory changes. Labs reviewed and no leukocytosis. Urinalysis has proteinuria which patient notes is chronic. She does have 10-20 WBCs in her urine although there is squamous contamination. Given symptoms I will treat for urinary tract infection with keflex. Plan for close outpatient follow-up with PCP. All results were discussed with the patient. Usual customary discharge instructions were reviewed with the patient. She verbalized importance of timely outpatient follow-up as discussed. Lab Data Lab results reviewed: Yes I reviewed the patient's lab results. Labs: 07/21/22 15:45 Urine - Reflex from Ua Urine Culture - Final Gram Positive [place]lee,Mixed Laboratory Tests Range/Units 07/21/22 07/21/22 07/21/22 12:26 13:42 13:42 WBC (4.4-10.8) 10^3/uL RBC (3.93-5.22) 10^6/uL Hgb (11.2-15.7) g/dL Hct (36.0-46.0) % MCV (80-95) fL MCH (27.0-33.0) pg MCHC (32.0-36.0) % RDW (11.7-14.6) % Plt Count (130-400) 10^3/uL MPV (8.0-11.0) fL Immature Gran % Neutrophils % Lymphocytes % Monocytes % Eosinophils % Basophils % Nucleated RBC % (0.0-0.3) % Absolute Neutrophils (1.2-6.7) 10^3/uL Absolute Lymphocytes (1.2-3.4) 10^3/uL Absolute Monocytes (0.1-0.8) 10^3/uL Absolute Eosinophils (0.0-0.7) 10^3/uL Absolute Basophils (0.0-0.2) 10^3/uL Sodium (136-145) mmol/L 143 Potassium (3.5-5.1) mmol/L 3.7 Chloride (98-107) mmol/L 104 Carbon Dioxide (21.0-32.0) mmol/L 29.1 Anion Gap (3-11) mmol/L 9.9 BUN (7-18) mg/dL 28 H Creatinine (0.55-1.02) mg/dL 1.3 H Est GFR (CKD-EPI 2020) (mL/min/1.73m2) 44.79 Glucose (74-106) mg/dL 122 H Calcium (8.5-10.1) mg/dL 9.8 Total Bilirubin (0.2-1.0) mg/dL 0.4 AST (15-37) U/L 16 ALT (14-59) U/L 19 Alkaline Phosphatase (46-116) U/L 103 Total Protein (6.4-8.2) g/dL 8.6 H Albumin (3.4-5.0) g/dL 4.1 Lipase (73-393) U/L 306 Urine Color (Yellow) Yellow Urine Clarity (Clear) Clear Urine pH (5-8) 6.0 Ur Specific [place] (1.005-1.025) >= 1.030 H Urine Protein (Negative) mg/dL 100 H Urine Ketones (Negative) mg/dL Negative Urine Blood (Negative) Trace-intact H Urine Nitrite (Negative) Negative Urine Bilirubin (Negative) Negative Urine Urobilinogen (Up TO 0.2) EU/dL 0.2 Ur Leukocyte Esterase (Negative) Small H Urine RBC (0-2) HPF 0-2 Urine WBC (0-5) HPF 10-20 H Ur Epithelial Cells (Negative) HPF Moderate Urine Crystals (Negative) HPF Negative Urine Bacteria (Negative) HPF Rare Urine Casts (Negative) LPF Negative Urine Mucus (Negative) Trace Urine Other (Negative) Ur Culture Indicated? No/Sq. Contamination Urine Glucose (Negative) mg/dL Negative Range/Units 07/21/22 07/21/22 13:42 15:45 WBC (4.4-10.8) 10^3/uL 6.63 RBC (3.93-5.22) 10^6/uL 4.17 Hgb (11.2-15.7) g/dL 12.4 Hct (36.0-46.0) % 38.2 MCV (80-95) fL 92 MCH (27.0-33.0) pg 29.7 MCHC (32.0-36.0) % 32.5 RDW (11.7-14.6) % 12.6 Plt Count (130-400) 10^3/uL 257 MPV (8.0-11.0) fL 10.1 Immature Gran % 0.2 Neutrophils % 63.7 Lymphocytes % 24.0 Monocytes % 8.9 Eosinophils % 2.7 Basophils % 0.5 Nucleated RBC % (0.0-0.3) % 0.0 Absolute Neutrophils (1.2-6.7) 10^3/uL 4.23 Absolute Lymphocytes (1.2-3.4) 10^3/uL 1.59 Absolute Monocytes (0.1-0.8) 10^3/uL 0.59 Absolute Eosinophils (0.0-0.7) 10^3/uL 0.18 Absolute Basophils (0.0-0.2) 10^3/uL 0.03 Sodium (136-145) mmol/L Potassium (3.5-5.1) mmol/L Chloride (98-107) mmol/L Carbon Dioxide (21.0-32.0) mmol/L Anion Gap (3-11) mmol/L BUN (7-18) mg/dL Creatinine (0.55-1.02) mg/dL Est GFR (CKD-EPI 2020) (mL/min/1.73m2) Glucose (74-106) mg/dL Calcium (8.5-10.1) mg/dL Total Bilirubin (0.2-1.0) mg/dL AST (15-37) U/L ALT (14-59) U/L Alkaline Phosphatase (46-116) U/L Total Protein (6.4-8.2) g/dL Albumin (3.4-5.0) g/dL Lipase (73-393) U/L Urine Color (Yellow) Yellow Urine Clarity (Clear) Clear Urine pH (5-8) 6.0 Ur Specific Florence (1.005-1.025) 1.025 Urine Protein (Negative) mg/dL >=300 H Urine Ketones (Negative) mg/dL Negative Urine Blood (Negative) Small H Urine Nitrite (Negative) Negative Urine Bilirubin (Negative) Negative Urine Urobilinogen (Up TO 0.2) EU/dL 0.2 Ur Leukocyte Esterase (Negative) Small H Urine RBC (0-2) HPF 5-10 H Urine WBC (0-5) HPF 10-20 H Ur Epithelial Cells (Negative) HPF Few Urine Crystals (Negative) HPF Negative Urine Bacteria (Negative) HPF Negative Urine Casts (Negative) LPF Negative Urine Mucus (Negative) Negative Urine Other (Negative) Mod Transitional Ur Culture Indicated? Yes Urine Glucose (Negative) mg/dL Negative HPI General Date/Time Provider Initiated Documentation: 07/21/22 13:35 . Limitations to Documentation: no limitations . Information obtained by: patient . HPI Narrative: 67-year-old female here with chief complaint of abdominal pain. Patient notes abdominal pain in her right lower abdomen for the past couple days. Patient notes prior history of appendectomy. Patient is concerned that she has a kidney stone. No associated dysuria. No gross hematuria. Related Data Home Medications Medication Instructions Recorded Confirmed Catnip 01/29/16 amlodipine 5 mg-benazepril 20 mg 1 ea PO 01/29/16 capsule (Lotrel) bee pollen 550 mg capsule 550 mg PO 01/29/16 bimatoprost 0.01 % eye drops 5 ml ophthalmic (eye) 01/29/16 (Lumigan) calcium-vitamin D3-vitamin K 500 2 ea PO DAILY 01/29/16 09/04/17 mg-1,000 unit-40 mcg chewable tablet fexofenadine-pseudoephedrine ER 1 tab-cap PO DAILY 01/29/16 09/04/17 180 mg-240 mg tablet,ext.release 24 hr (Ameena-D 24 Hour) ginkgo biloba leaf extract 60 mg 120 mg PO 01/29/16 tablet metformin 500 mg tablet 500 mg PO BID 01/29/16 09/04/17 multivitamin (Once Daily tablet) 1 ea PO 01/29/16 omega 7-ffj-mty-fish oil 1,000 mg 2,000 mg PO 01/29/16 (120 mg-180 mg) capsule peg 400-propylene glycol 0.4 %-0.3 15 ml ophthalmic (eye) 01/29/16 % eye drops (Systane (propylene glycol)) turmeric root extract 500 mg 500 mg PO 01/29/16 capsule Duo Neb 0.5 - 2.5 mg inhalation QID 05/22/17 09/04/17 albuterol sulfate 90 mcg/actuation 2 puff inhalation Q4H PRN 05/22/17 09/04/17 aerosol inhaler (ProAir HFA) blood sugar diagnostic ([facility] 05/22/17 09/04/17 Test strips) estradiol 0.01% (0.1 mg/gram) 1 g VG HS 05/22/17 09/04/17 vaginal cream (Estrace) fluticasone propionate 50 50 mcg inhalation BID 05/22/17 09/04/17 mcg/actuation blister powder for inhalation (Flovent Diskus) fluticasone propionate 50 9.9 ml NS DAILY 05/22/17 09/04/17 mcg/actuation nasal spray,suspension (Flonase Allergy Relief) gemfibrozil 600 mg tablet (Lopid) 600 mg PO BID 05/22/17 09/04/17 lancets 28 gauge (FreeStyle 05/22/17 09/04/17 Lancets) levothyroxine 25 mcg tablet 25 mcg PO DAILY 05/22/17 09/04/17 meclizine 25 mg chewable tablet 25 mg PO DAILY 05/22/17 09/04/17 omeprazole 20 mg capsule,delayed 20 mg PO DAILY 05/22/17 09/04/17 release amlodipine 5 mg-benazepril 20 mg 1 tab-cap PO DAILY 09/26/17 capsule (Lotrel) cetirizine 10 mg tablet (Zyrtec) 10 mg PO DAILY 09/26/17 chlordiazepoxide HCl 5 mg capsule 5 mg PO ONE TAB PM,2 TABS HS 09/26/17 cefpodoxime 200 mg tablet 200 mg PO BID #20 tabs 07/21/22 Previous Rx's Medication Instructions Recorded cefpodoxime 200 mg tablet 200 mg PO BID #20 tabs 07/21/22 Allergies Allergy/AdvReac Type Severity Reaction Status Date / Time tetanus toxoid, adsorbed Allergy Intermediate edema Unverified 11/08/17 12:26 BHUMI Inhibitors Allergy Unknown Unverified 07/21/22 12:22 codeine Allergy Unverified 07/21/22 12:22 diazepam Allergy Unverified 07/21/22 12:22 egg Allergy Unverified 07/21/22 12:22 erythromycin base Allergy Unverified 07/21/22 12:22 fentanyl Allergy Unverified 07/21/22 12:22 levofloxacin Allergy Unverified 07/21/22 12:22 morphine Allergy Unverified 07/21/22 12:22 nitrofurantoin Allergy Unverified 07/21/22 12:22 [From Macrobid] nitrofurantoin Allergy Unverified 07/21/22 12:22 macrocrystalline [From Macrobid] oxycodone Allergy Unverified 07/21/22 12:22 pistachio nut Allergy Unverified 07/21/22 12:22 shellfish derived Allergy Unverified 11/08/17 12:26 Sulfa (Sulfonamide Allergy Unverified 11/08/17 12:26 Antibiotics) sulfur [From Sulfur-8] Allergy Unverified 07/21/22 12:22 tomato Allergy Unverified 07/21/22 12:22 prednisone AdvReac Unverified 11/08/17 12:26 pisachios Allergy Uncoded 09/04/17 11:16 General Stated Complaint: Abd Prob URI: 3 Review of Systems Constitutional Constitutional: Denies fever(s) Gastrointestinal Gastrointestinal: Reports as per HPI Genitourinary Genitourinary: Reports as per HPI Psychiatric Psychiatric: Reports anxiety PFSH All Active Problems (Updated 07/21/22 @ 15:29 by Oliver Meza MD) Acute UTI (Acute) Right lower quadrant abdominal pain (Acute) Nephrolithiasis (Chronic) Social History Smoking/Tobacco Use Status: Never Smoking risk assessment performed?: Yes Alcohol Intake: never Drug use: Never Substance use type: does not use Do you feel safe at home: Yes Do you feel safe in your relationship?: Yes Exam Const General: cooperative and no acute distress HENMT Mouth: moist mucous membranes Eyes Conjunctivae: normal conjunctivae Sclera: normal sclerae Neck Neck: trachea midline Resp Auscultation: clear to auscultation bilaterally, no rales, no rhonchi and no wheezes Cardio Rate: regular rate and not tachycardic Rhythm: regular rhythm GI Palpation: soft, not firm, no guarding, no masses, not rigid and tender in the RLQ Auscultation: normal bowel sounds Skin General skin exam: no rashes or lesions noted Neuro General: patient alert, patient awake and tone normal Extrem General: no edema Psych Appearance: grossly normal Mental Status: mental status grossly normal Course Vital Signs Vital signs: Vital Signs Temperature 36.6 C 07/21/22 12:15 Pulse 75 07/21/22 12:15 Respiratory Rate 20 07/21/22 12:15 Blood Pressure 214/98 H 07/21/22 12:15 Pulse Oximetry 99 07/21/22 12:15 Temperature 36.6 C 07/21/22 12:15 Temperature Source Skin 07/21/22 12:15 Pulse 75 07/21/22 12:15 Respiratory Rate 20 07/21/22 12:15 Respiratory Effort Non-Labored 07/21/22 13:25 Blood Pressure 214/98 H 07/21/22 12:15 Blood Pressure Position Sitting 07/21/22 12:15 Pulse Oximetry 99 07/21/22 12:15 Oxygen Delivery Method Room Air 07/21/22 12:15 Oxygen Flow Rate 0 07/21/22 12:15 Pain Level 8 07/21/22 12:15 Lab/Test Results Lab/Test Results: Laboratory Tests Range/Units 07/21/22 07/21/22 07/21/22 12:26 13:42 13:42 WBC (4.4-10.8) 10^3/uL RBC (3.93-5.22) 10^6/uL Hgb (11.2-15.7) g/dL Hct (36.0-46.0) % MCV (80-95) fL MCH (27.0-33.0) pg MCHC (32.0-36.0) % RDW (11.7-14.6) % Plt Count (130-400) 10^3/uL MPV (8.0-11.0) fL Immature Gran % Neutrophils % Lymphocytes % Monocytes % Eosinophils % Basophils % Nucleated RBC % (0.0-0.3) % Absolute Neutrophils (1.2-6.7) 10^3/uL Absolute Lymphocytes (1.2-3.4) 10^3/uL Absolute Monocytes (0.1-0.8) 10^3/uL Absolute Eosinophils (0.0-0.7) 10^3/uL Absolute Basophils (0.0-0.2) 10^3/uL Sodium (136-145) mmol/L 143 Potassium (3.5-5.1) mmol/L 3.7 Chloride (98-107) mmol/L 104 Carbon Dioxide (21.0-32.0) mmol/L 29.1 Anion Gap (3-11) mmol/L 9.9 BUN (7-18) mg/dL 28 H Creatinine (0.55-1.02) mg/dL 1.3 H Est GFR (CKD-EPI 2020) (mL/min/1.73m2) 44.79 Glucose (74-106) mg/dL 122 H Calcium (8.5-10.1) mg/dL 9.8 Total Bilirubin (0.2-1.0) mg/dL 0.4 AST (15-37) U/L 16 ALT (14-59) U/L 19 Alkaline Phosphatase (46-116) U/L 103 Total Protein (6.4-8.2) g/dL 8.6 H Albumin (3.4-5.0) g/dL 4.1 Lipase (73-393) U/L 306 Urine Color (Yellow) Yellow Urine Clarity (Clear) Clear Urine pH (5-8) 6.0 Ur Specific [place] (1.005-1.025) >= 1.030 H Urine Protein (Negative) mg/dL 100 H Urine Ketones (Negative) mg/dL Negative Urine Blood (Negative) Trace-intact H Urine Nitrite (Negative) Negative Urine Bilirubin (Negative) Negative Urine Urobilinogen (Up TO 0.2) EU/dL 0.2 Ur Leukocyte Esterase (Negative) Small H Urine RBC (0-2) HPF 0-2 Urine WBC (0-5) HPF 10-20 H Ur Epithelial Cells (Negative) HPF Moderate Urine Crystals (Negative) HPF Negative Urine Bacteria (Negative) HPF Rare Urine Casts (Negative) LPF Negative Urine Mucus (Negative) Trace Ur Culture Indicated? No/Sq. Contamination Urine Glucose (Negative) mg/dL Negative Range/Units 07/21/22 13:42 WBC (4.4-10.8) 10^3/uL 6.63 RBC (3.93-5.22) 10^6/uL 4.17 Hgb (11.2-15.7) g/dL 12.4 Hct (36.0-46.0) % 38.2 MCV (80-95) fL 92 MCH (27.0-33.0) pg 29.7 MCHC (32.0-36.0) % 32.5 RDW (11.7-14.6) % 12.6 Plt Count (130-400) 10^3/uL 257 MPV (8.0-11.0) fL 10.1 Immature Gran % 0.2 Neutrophils % 63.7 Lymphocytes % 24.0 Monocytes % 8.9 Eosinophils % 2.7 Basophils % 0.5 Nucleated RBC % (0.0-0.3) % 0.0 Absolute Neutrophils (1.2-6.7) 10^3/uL 4.23 Absolute Lymphocytes (1.2-3.4) 10^3/uL 1.59 Absolute Monocytes (0.1-0.8) 10^3/uL 0.59 Absolute Eosinophils (0.0-0.7) 10^3/uL 0.18 Absolute Basophils (0.0-0.2) 10^3/uL 0.03 Sodium (136-145) mmol/L Potassium (3.5-5.1) mmol/L Chloride (98-107) mmol/L Carbon Dioxide (21.0-32.0) mmol/L Anion Gap (3-11) mmol/L BUN (7-18) mg/dL Creatinine (0.55-1.02) mg/dL Est GFR (CKD-EPI 2020) (mL/min/1.73m2) Glucose (74-106) mg/dL Calcium (8.5-10.1) mg/dL Total Bilirubin (0.2-1.0) mg/dL AST (15-37) U/L ALT (14-59) U/L Alkaline Phosphatase (46-116) U/L Total Protein (6.4-8.2) g/dL Albumin (3.4-5.0) g/dL Lipase (73-393) U/L Urine Color (Yellow) Urine Clarity (Clear) Urine pH (5-8) Ur Specific [place] (1.005-1.025) Urine Protein (Negative) mg/dL Urine Ketones (Negative) mg/dL Urine Blood (Negative) Urine Nitrite (Negative) Urine Bilirubin (Negative) Urine Urobilinogen (Up TO 0.2) EU/dL Ur Leukocyte Esterase (Negative) Urine RBC (0-2) HPF Urine WBC (0-5) HPF Ur Epithelial Cells (Negative) HPF Urine Crystals (Negative) HPF Urine Bacteria (Negative) HPF Urine Casts (Negative) LPF Urine Mucus (Negative) Ur Culture Indicated? Urine Glucose (Negative) mg/dL
[2022-07-21 15:51] LABS: Bilirubin Negative (Negative); Blood Small (Negative); Clarity Clear (Clear); Glucose Negative (Negative); Ketones Negative (Negative); Leukocyte Esterase Small (Negative); Nitrite Negative (Negative); Specific Gravity 1.025 (1.005-1.025); Urobilinogen 0.2 EU/dL (Up TO 0.2)
[2022-07-21] MEDS: Cefpodoxime 200 MG TAB PO (15:59)
[2022-07-21 16:26] LABS: Bacteria Negative HPF (Negative); C & S Indicated? Yes; Casts Negative LPF (Negative); Crystals Negative HPF (Negative); Epithelial Cells Few HPF (Negative); Mucus Negative (Negative); Other Cells Mod Transitional (Negative)
--- NOTE | 2022-07-23 09:12 | NUR.NOTE ---
Nursing Note: Accessed chart to look up whether or not on antibiotic.
[2025-06-30 08:34] LABS: Alkaline Phosphatase 103 U/L (46-116)
== END 2022-07-21 15:46 | disposition home or self-care (01) ==
PROVIDERS: Emergency Provider Student in an Organized Health Care Education/Training Program; PCP Nurse Practitioner
DX: N39.0 Urinary tract infection, site not specified (principal); N20.0 Calculus of kidney; R80.9 Proteinuria, unspecified; Z90.49 Acquired absence of other specified parts of digestive tract
CPT/HCPCS: 36415; 80053; 83690; 93005; 99284; 74176; 81003; 81015; 85025; 87086; 93010

== ENCOUNTER → 2022-12-20 14:08 | Outpatient (BNVA) | payer MEDICARE, OTHER, SELFPAY | PROVIDERS: PCP Nurse Practitioner; Referring Provider Nurse Practitioner; Visit Provider Nurse Practitioner Gerontology | DX: N20.0 Calculus of kidney (principal) | CPT/HCPCS: 99215 ==

== ENCOUNTER → 2023-03-22 02:49 | Outpatient (CLI) | payer MEDICARE, OTHER, SELFPAY ==
--- NOTE | 2023-03-22 08:47 | DI.US_ITS ---
Exam(s) US RENAL EXAM: US RENAL CLINICAL HISTORY: monitoring size/position of renal calculi, nephrolithiasis, N20.0. TECHNIQUE: Wilson scale, color and spectral Doppler were used. COMPARISON: CT CT RENAL COLIC WO from 07/21/2022 FINDINGS: Renal size in cm: Right: 12.8. Left: . Echogenicity: Normal. Hydronephrosis: There is mild dilatation of the collecting systems bilaterally. Cyst or mass: No. Nephrolithiasis: There are few echogenic foci seen within the right kidney. The largest is seen in t he superior pole measures 7 mm. There also echogenic foci seen in the left kidney. The largest madhu ures 3 mm is located in the midpole. Other findings: None. Bladder:Normal. Ureteral jets: Right: Visualized and unremarkable. Left: Visualized and unremarkable. Prevoid vol:167 cc Postvoid vol:8 cc Renal color flow: Symmetric and within normal limits. IMPRESSION: 1. Bilateral nephrolithiasis. 2. Mild dilatation of both renal collecting systems. This may reflect mild hydronephrosis. Please c orrelate clinically. If clinically appropriate, a renal colic CT may be obtained. Unexpected findings DATA REPOSITORY:
== END ==
PROVIDERS: PCP Nurse Practitioner; Visit Provider Nurse Practitioner Gerontology
DX: N20.0 Calculus of kidney (principal)
CPT/HCPCS: 76770

== ENCOUNTER → 2023-05-17 14:02 | Outpatient (BNVA) | payer MEDICARE, OTHER, SELFPAY | PROVIDERS: PCP Nurse Practitioner; Referring Provider Nurse Practitioner; Visit Provider Nurse Practitioner Gerontology | DX: N20.0 Calculus of kidney (principal) | CPT/HCPCS: 99214 ==

== ENCOUNTER → 2023-06-15 12:21 | Outpatient (BNVA) | payer MEDICARE, OTHER, SELFPAY | PROVIDERS: PCP Nurse Practitioner; Referring Provider Nurse Practitioner; Visit Provider Physician Assistant Surgical | DX: R06.00 Dyspnea, unspecified (principal); G93.32 Myalgic encephalomyelitis/chronic fatigue syndrome; H02.402 Unspecified ptosis of left eyelid; G47.33 Obstructive sleep apnea (adult) (pediatric); E66.9 Obesity, unspecified | CPT/HCPCS: 99215 ==

== ENCOUNTER → 2023-11-02 14:30 | Outpatient (BNVA) | payer MEDICARE, OTHER, SELFPAY | PROVIDERS: PCP Nurse Practitioner; Referring Provider Nurse Practitioner; Visit Provider Student in an Organized Health Care Education/Training Program | DX: J98.4 Other disorders of lung (principal); G47.33 Obstructive sleep apnea (adult) (pediatric) | CPT/HCPCS: 99214 ==

== ENCOUNTER → 2023-11-15 04:24 | Outpatient (CLI) | payer MEDICARE, OTHER, SELFPAY ==
--- NOTE | 2023-11-15 08:15 | DI.US_ITS ---
Exam(s) US RENAL EXAM: US RENAL CLINICAL HISTORY: Monitoring stone burden,nephrolithiasis,n20.0. TECHNIQUE: Wilson scale, color and spectral Doppler were used. COMPARISON: CT CT RENAL COLIC WO from 07/21/2022 US US RENAL from 03/22/2023 FINDINGS: Right kidney: 10.8 cm in length. Lobulated contour. Scarring lower pole. Echogenicity: Normal Hydronephrosis: No Cyst or mass: Small parapelvic cysts. Nephrolithiasis: Several stones noted, largest 4 millimeter stone at the lower pole. Left kidney: 10.7 cm in length. Lobulated contour. Small parapelvic cysts. Echogenicity: Normal Hydronephrosis: No Cyst or mass: No Nephrolithiasis: Several stones noted, largest is a 7 millimeter stone at the mid left kidney. Bladder:Normal. Prevoid vol: 102 cc Postvoid vol:15 cc IMPRESSION: Bilateral nephrolithiasis. No evidence of hydronephrosis. DATA REPOSITORY:
== END ==
PROVIDERS: PCP Nurse Practitioner; Visit Provider Nurse Practitioner Gerontology
DX: N20.0 Calculus of kidney (principal)
CPT/HCPCS: 76770

== ENCOUNTER → 2023-11-22 14:33 | Outpatient (BNVA) | payer MEDICARE, OTHER, SELFPAY | PROVIDERS: PCP Nurse Practitioner; Referring Provider Nurse Practitioner; Visit Provider Nurse Practitioner Gerontology | DX: N20.0 Calculus of kidney (principal) | CPT/HCPCS: 99214 ==

== ENCOUNTER → 2024-01-31 14:28 | Outpatient (BNVA) | payer MEDICARE, OTHER, SELFPAY | PROVIDERS: PCP Nurse Practitioner; Referring Provider Nurse Practitioner; Visit Provider Physician Assistant Surgical | DX: G47.33 Obstructive sleep apnea (adult) (pediatric) (principal); I27.20 Pulmonary hypertension, unspecified; I50.30 Unspecified diastolic (congestive) heart failure; J98.4 Other disorders of lung | CPT/HCPCS: 76604; 99214 ==

== ENCOUNTER → 2024-03-22 12:46 | Outpatient (BNVA) | payer MEDICARE, OTHER, SELFPAY | PROVIDERS: PCP Nurse Practitioner; Referring Provider Nurse Practitioner; Visit Provider Internal Medicine | DX: E66.2 Morbid (severe) obesity with alveolar hypoventilation (principal); I27.20 Pulmonary hypertension, unspecified; E66.9 Obesity, unspecified; Z68.36 Body mass index [BMI] 36.0-36.9, adult; F43.21 Adjustment disorder with depressed mood; E11.9 Type 2 diabetes mellitus without complications | CPT/HCPCS: 94618; 99215 ==

== ENCOUNTER 2024-05-12 09:31 | Inpatient (IN) | payer MEDICARE, OTHER, SELFPAY ==
[2024-05-12] VITALS (41 sets, daily range): BP systolic 155–260; BP diastolic 110–153; PULSE 79–112; RESP 18–34; TEMP 36–36.4; O2SAT 82–98
--- NOTE | 2024-05-12 09:30 | RT.EKG_ITS ---
APPROVED REPORT Exam: Resting ECG Reason for Exam: sob Patient Location: E HR:102 bpm ECG Measurements Heart Rate 102 AXIS TN 161 P 72 QRSd 154 QRS -28 QT 393 T 132 QTc 513 Conclusion Sinus tachycardi 102 LBBB no stemi
[2024-05-12 10:01] LABS: BE (Venous) 3 mmol/L (-2-3); HCO3 (Venous) 29 mmol/L (23-28); pCO2 (Venous) 49 mmHg (41-51); pH (Venous) 7.37 (7.31-7.41); pO2 (Venous) 34 mmHg
[2024-05-12 10:12] LABS: Abs Immature Grans 0.06 10^3/uL (0.0-0.06); Absolute Basophil Count 0.06 10^3/uL (0.0-0.2); Absolute Lymphocyte Count 2.21 10^3/uL (1.2-3.4); Absolute Monocyte Count 0.95 10^3/uL (0.1-0.8); Basophils % 0.5 %; Eosinophils % 1.6 %; HCT 37.9 % (36.0-46.0); HGB 11.6 g/dL (11.2-15.7); Immature Grans % 0.5 %; Lymphocytes % 18.2 %; MCH 28.2 pg (27.0-33.0); MCHC 30.6 % (32.0-36.0); MCV 92 fL (80-95); MPV 9.7 fL (8.0-11.0); Monocytes % 7.8 %; Neutrophils % 71.4 %; Platelet Count 293 10^3/uL (130-400); RBC 4.11 10^6/uL (3.93-5.22); RDW 13.9 % (11.7-14.6); RDW-SD 46.9 fL; WBC 12.15 10^3/uL (4.4-10.8)
[2024-05-12 10:14] LABS: Absolute Eosinophil Count 0.19 10^3/uL (0.0-0.7); Absolute Neutrophil Count 8.68 10^3/uL (1.2-6.7)
[2024-05-12 10:29] LABS: ALT 15 U/L (14-59); AST 11 U/L (15-37); Albumin 3.6 g/dL (3.4-5.0); Alkaline Phosphatase 104 U/L (46-116); Anion Gap 9.4 mmol/L (3-11); BUN 43 mg/dL (7-18); Bilirubin, Total 0.38 mg/dL (0.2-1.0); CO2 28.6 mmol/L (21.0-32.0); CREATININE 1.6 mg/dL (0.55-1.02); Calcium 9.3 mg/dL (8.5-10.1); Chloride 107 mmol/L (98-107); Glucose 132 mg/dL (74-106); NT-proBNP 6486 pg/mL (<300); Potassium 4.3 mmol/L (3.5-5.1); Sodium 145 mmol/L (136-145); Total Protein 7.9 g/dL (6.4-8.2)
[2024-05-12 10:32] LABS: Troponin I 54 ng/L (<or=51)
[2024-05-12 10:40] LABS: COVID-19 PCR Negative (Negative); Influenza A PCR Negative (Negative); Influenza B PCR Negative (Negative); RSV PCR Negative (Negative)
[2024-05-12 10:44] LABS: Source Nasopharynx
--- NOTE | 2024-05-12 10:57 | ED.GENADUL_ITS ---
Discharge Plan Disposition Patient Disposition: Admit to [facility] Condition: Poor Discharge Details Chief Complaint: SOB Clinical Impression: Shortness of breath, Hypoxia, Pneumonia, Elevated brain natriuretic peptide (BNP) level Primary Care Provider: Kavya Pendleton ED Provider: Jessica Duran Home Meds and New Rx's Prescriptions: No Action bimatoprost 0.01 % drops 1 drp ophthalmic (eye) DAILY phenazopyridine 200 mg tablet 200 mg PO DAILY PRN diltiazem HCl 240 mg capsule,extended release 24hr 240 mg PO DAILY levothyroxine 50 mcg capsule 75 mcg PO DAILY multivitamin [Once Daily] 1 EACH tablet 1 ea PO DAILY omega 5-nfh-mmr-fish oil 1,000 MG capsule 2,000 mg PO DAILY calcium-vitamin D3-vitamin K 1 EACH tablet,chewable 2 ea PO DAILY bee pollen 550 MG capsule 550 mg PO DAILY ginkgo biloba leaf extract 60 MG tablet 120 mg PO BID CATNIP (DME) FreeStyle Test 1 EACH strip 1 ea Miscellaneous DIRECTED. gemfibrozil [Lopid] 600 MG tablet 600 mg PO BID chlordiazepoxide HCl 5 MG capsule 5 mg PO ONE TAB PM,2 TABS HS metformin 500 mg tablet 500 mg PO DAILY fluticasone propionate [Flonase Allergy Relief] 50 mcg/actuation spray,suspension 2 spray intranasal DAILY Rx Instructions: administer into each nostril losartan 50 mg tablet 50 mg PO BID meclizine 25 mg tablet 25 mg PO DAILY albuterol sulfate [ProAir HFA] 90 mcg/actuation HFA aerosol inhaler 2 puff Inhalation Q4H PRN Qty: 8.5 6RF HPI General Date/Time Provider Initiated Documentation: 05/12/24 09:39 . Limitations to Documentation: no limitations . Information obtained by: patient . HPI Narrative: 8-year-old female with past medical history including obesity hypoventilation syndrome, HFpEF, obesity, chronic oxygen dependence presents for evaluation of progressively worsening shortness of breath. She reports that she has had symptoms over the last 3 days. Not associated with cough or fever. She states that she has remained on her 4 L of oxygen at all times. She states she is unable to sleep because of the shortness of breath. She does report that she has some chest discomfort. She states that she was recently prescribed an inhaler of some kind but that she just got it from the pharmacy today and that she has not started taking it. Related Data Home Medications ?Medication ?Instructions ?Recorded ?Confirmed Catnip 01/29/16 03/22/24 bee pollen 550 mg capsule 550 mg PO DAILY 01/29/16 05/12/24 calcium 500 mg-vitamin D3 1,000 2 ea PO DAILY 01/29/16 05/12/24 unit-vitamin K 40 mcg chewable tablet ginkgo biloba leaf extract 60 mg 120 mg PO BID 01/29/16 05/12/24 tablet multivitamin (Once Daily tablet) 1 ea PO DAILY 01/29/16 05/12/24 omega 3-ezd-krv-fish oil 1,000 mg 2,000 mg PO DAILY 01/29/16 05/12/24 (120 mg-180 mg) capsule blood sugar diagnostic ([facility] 05/22/17 03/22/24 Test strips) gemfibrozil 600 mg tablet (Lopid) 600 mg PO BID 05/22/17 05/12/24 chlordiazepoxide HCl 5 mg capsule 5 mg PO ONE TAB PM,2 TABS HS 09/26/17 05/12/24 bimatoprost 0.01 % eye drops 1 drp ophthalmic (eye) DAILY 12/20/22 05/12/24 diltiazem HCl 240 mg 240 mg PO DAILY 12/20/22 05/12/24 capsule,extended release 24 hr metformin 500 mg tablet 500 mg PO DAILY 12/20/22 05/12/24 phenazopyridine 200 mg tablet 200 mg PO DAILY PRN 12/20/22 05/12/24 fluticasone propionate 50 2 spray intranasal DAILY 05/26/23 05/12/24 mcg/actuation nasal spray,suspension (Flonase Allergy Relief) losartan 50 mg tablet 50 mg PO BID 05/26/23 05/12/24 meclizine 25 mg tablet 25 mg PO DAILY 05/26/23 05/12/24 albuterol sulfate 90 mcg/actuation 2 puff inhalation Q4H PRN #8.5 06/19/23 aerosol inhaler (ProAir HFA) grams levothyroxine 50 mcg capsule 75 mcg PO DAILY 11/22/23 05/12/24 Previous Rx's ?Medication ?Instructions ?Recorded albuterol sulfate 90 mcg/actuation 2 puff inhalation Q4H PRN #8.5 06/19/23 aerosol inhaler (ProAir HFA) grams Allergies Allergy/AdvReac Type Severity Reaction Status Date / Time tetanus toxoid, adsorbed Allergy Intermediate edema Verified 05/12/24 09:55 BHUMI Inhibitors Allergy Unknown Unknown Verified 05/12/24 09:55 acetaminophen (From Percocet) Allergy Unknown Verified 05/12/24 09:55 codeine Allergy Unknown Verified 05/12/24 09:55 diazepam Allergy Unknown Verified 05/12/24 09:55 egg Allergy Unknown Verified 05/12/24 09:55 erythromycin base Allergy Unknown Verified 05/12/24 09:55 fentanyl Allergy Unknown Verified 05/12/24 09:55 levofloxacin Allergy Unknown Verified 05/12/24 09:55 morphine Allergy Unknown Verified 05/12/24 09:55 nitrofurantoin (From Allergy Unknown Verified 05/12/24 09:55 Macrobid) nitrofurantoin Allergy Unknown Verified 05/12/24 09:55 macrocrystalline (From Macrobid) oxycodone Allergy Unknown Verified 05/12/24 09:55 pistachio nut Allergy Unknown Verified 05/12/24 09:55 shellfish derived Allergy Unknown Verified 05/12/24 09:55 Sulfa (Sulfonamide Allergy Unknown Verified 05/12/24 09:55 Antibiotics) sulfur (From Sulfur-8) Allergy Unknown Verified 05/12/24 09:55 tomato Allergy Unknown Verified 05/12/24 09:55 prednisone AdvReac Unknown Verified 05/12/24 09:55 pisachios Allergy Unknown Uncoded 05/12/24 09:55 General Stated Complaint: SOB URI: 3 Exam Narrative Exam Narrative: Review of Systems: All systems reviewed & are unremarkable except as noted in HPI and below Obese, no acute distress NCAT Mild tachycardia Diminished air movement bilaterally no crackles no wheezing On 4 L nasal cannula Nondistended abdomen soft nontender Extremities w/o no edema no focal neurologic deficits Course Vital Signs Vital signs: Vital Signs Temperature 36.4 C 05/12/24 09:38 Pulse 105 H 05/12/24 09:38 Respiratory Rate 22 05/12/24 09:38 Blood Pressure 221/148 H 05/12/24 09:38 Pulse Oximetry 86 L 05/12/24 09:38 Temperature 36.4 C 05/12/24 09:38 Temperature Source Temporal Artery Scan 05/12/24 09:38 Pulse 105 H 05/12/24 09:47 Respiratory Rate 22 05/12/24 09:47 Respiratory Effort Short of Breath, Labored 05/12/24 09:47 Respiratory Depth Shallow 05/12/24 09:47 Respiratory Pattern Tachypnea 05/12/24 09:47 Blood Pressure 221/148 H 05/12/24 09:47 Blood Pressure Position Sitting 05/12/24 09:47 Pulse Oximetry 95 05/12/24 09:47 Oxygen Delivery Method Nasal Cannula 05/12/24 09:47 Oxygen Flow Rate 2 05/12/24 09:47 Pain Level 2 05/12/24 09:47 Lab/Test Results Lab/Test Results: Laboratory Tests Range/Units 05/12/24 09:58 WBC (4.4-10.8) 10^3/uL 12.15 H RBC (3.93-5.22) 10^6/uL 4.11 Hgb (11.2-15.7) g/dL 11.6 Hct (36.0-46.0) % 37.9 MCV (80-95) fL 92 MCH (27.0-33.0) pg 28.2 MCHC (32.0-36.0) % 30.6 L RDW (11.7-14.6) % 13.9 Plt Count (130-400) 10^3/uL 293 MPV (8.0-11.0) fL 9.7 Immature Gran % % 0.5 Neutrophils % % 71.4 Lymphocytes % % 18.2 Monocytes % % 7.8 Eosinophils % % 1.6 Basophils % % 0.5 Nucleated RBC % (0.0-0.3) % 0.0 Absolute Neutrophils (1.2-6.7) 10^3/uL 8.68 H Absolute Lymphocytes (1.2-3.4) 10^3/uL 2.21 Absolute Monocytes (0.1-0.8) 10^3/uL 0.95 H Absolute Eosinophils (0.0-0.7) 10^3/uL 0.19 Absolute Basophils (0.0-0.2) 10^3/uL 0.06 VBG pH (7.31-7.41) 7.37 VBG pCO2 (41-51) mmHg 49 VBG pO2 mmHg 34 VBG HCO3 (23-28) mmol/L 29 H VBG Total CO2 (24-29) mmol/L VBG O2 Saturation % VBG Base Excess (-2-3) mmol/L 3 Sodium (136-145) mmol/L 145 Potassium (3.5-5.1) mmol/L 4.3 Chloride (98-107) mmol/L 107 Carbon Dioxide (21.0-32.0) mmol/L 28.6 Anion Gap (3-11) mmol/L 9.4 BUN (7-18) mg/dL 43 H Creatinine (0.55-1.02) mg/dL 1.6 H Est GFR (CKD-EPI 2020) (mL/min/1.73m2) 34.70 Glucose (74-106) mg/dL 132 H Calcium (8.5-10.1) mg/dL 9.3 Magnesium (1.8-2.4) mg/dL 2.0 Total Bilirubin (0.2-1.0) mg/dL 0.38 AST (15-37) U/L 11 L ALT (14-59) U/L 15 Alkaline Phosphatase (46-116) U/L 104 Troponin I (<or=51) ng/L 54 H* NT-Pro-B Natriuret Pep (<300) pg/mL 6486 H Total Protein (6.4-8.2) g/dL 7.9 Albumin (3.4-5.0) g/dL 3.6 COVID-19 Source Nasopharynx SARS-CoV-2 (PCR) (Negative) Negative Influenza Type A (PCR) (Negative) Negative Influenza Type B (PCR) (Negative) Negative RSV (PCR) (Negative) Negative Medical Decision Making Emergent evaluation of shortness of breath. Patient is followed by pulmonology and was recently seen in clinic. Per their documentation they thought the patient was short of breath secondary to obesity hypoventilation and that she was to be on CPAP and 4 L of O2 at nighttime. There does not appear to be an oxygen requirement during the day, but the patient states that she needs her oxygen. She is not measuring an O2 sat at home but just her symptoms. Initial differential includes heart failure decompensation, pneumonia, viral illness. Given her significant hypoxia on arrival and need for O2, this is concerning. EKG reviewed and independently interpreted. Sinus 102 left bundle branch block. No STEMI. The patient's prior EKG did demonstrate an incomplete bundle branch, so I do not think this is a new change. She has noted to be hypertensive. She takes diltiazem per her med rec, but reports that she only takes her blood pressure medication at night. Does not take any medication in the morning. Lab work reviewed. Leukocytosis of 12 noted. No anemia. VBG without significant CO2 retention. Her creatinine is 1.6. Slightly worse than prior. LFTs are not elevated. Her first troponin was slightly elevated above the upper limit at 54. Will continue with serial trending has had a low suspicion for acute ACS. Her BNP is noted to be significantly elevated over 6000. She does not have a prior BNP in the system for comparison. Pulmonary clinic documents that she has got preserved EF however I am unable to find an echocardiogram in our system. Given this decompensation over lung function, her general lack of mobility, her hypoxia and tachycardia, I feel that I must consider pulmonary em bolism as a cause of her decompensation. I will send the patient for CTA. There is a listed shellfish allergy, but the patient has had prior IV contrast. Patient went to the bathroom on oxygen, but it was taken off for her to use the toilet and returned to the room. During that time she desaturated to 82%. CT chest report reviewed. There is no pulmonary embolism none dissected but aneurysm noted of aorta. There is question of infiltrate, given her elevated white blood count and acute on chronic symptoms, will treat for pneumonia. Will give Rocephin and azithromycin. IV Lasix given for elevated BNP. Given patient's increased oxygen requirement, she requires hospitalization. Discussed with the hospitalist who will admit for further management. Quality:SDOH Health Related Social Needs: No Data to Display Critical Care Time Critical Care Time Critical Care Time: Yes Total Critical Care Time: 36 Attestation: CRITICAL CARE Upon my evaluation, this patient had a high probability of imminent or life- threatening deterioration due to hypoxic respiratory failure which required my direct attention, intervention, and personal management. I have personally provided 36 minutes of critical care time exclusive of time spent on separately billable procedures. Time includes review of laboratory data, radiology results, discussion with consultants, and monitoring for potential decompensation. 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 Lumbar scoliosis Fibromyalgia Chronic fatigue syndrome Obesity Open-angle glaucoma Hypothyroidism Hypertensive disorder Surgical History H/O ureteroscopy Hx of section x 2 H/O tubal ligation Hx of cholecystectomy H/O: hysterectomy H/O bilateral oophorectomy History of carpal tunnel release Umbilical hernia repair of recurrent incarcerated H/O hernia repair Family History Mother Pulmonary fibrosis ILD (interstitial lung disease) Sister History of lobectomy of lung partial Social History Smoking/Tobacco Use Status: Former Tobacco Use Quit Date: 07/17/85 Smoking risk assessment performed?: Yes Alcohol Intake: never Drug use: Never Substance use type: does not use Do you feel safe at home: Yes Do you feel safe in your relationship?: Yes
--- NOTE | 2024-05-12 11:00 | DI.CT_ITS ---
Exam(s) CT CHEST PE CTA EXAM: CT CHEST PE CTA CLINICAL HISTORY: sob. TECHNIQUE: Imaging Protocol: CT angiography of the chest was performed using pulmonary embolus julio col. Multi planar reconstructions were performed. CONTRAST MATERIAL: Intravenous: Omnipaque 350 Contrast volume: 100 cc COMPARISON: CT CT Chest w/o Contrast from 11/27/2023 FINDINGS: CHEST: PULMONARY ARTERIES: There are no intraluminal filling defects to suggest acute pulmonary emboli. LUNGS: There are bilateral pleural effusions small-moderate size on the right and smaller on the left . There is mild patchy ground-glass infiltrate probably related to air trapping. MEDIASTINUM: There is no hilar nor mediastinal adenopathy. Visualized thyroid unremarkable. CARDIAC: Cardiomegaly with left ventricular prominent.The diameter of the ascending thoracic aorta is increased, measuring 4.1 cm. There is no significant shift of the interventricular septum. PARTIALLY VISUALIZED UPPERMOST ABDOMEN: There is some reflux of IV contrast into the intrahepatic IVC and intrahepatic systemic veins evident. Spleen size normal. OSSEOUS: No significant osseous lesions.There is some loss of superior endplate of T3 and T4, unchang ed. No new fractures evident.. IMPRESSION: 1. No evidence of acute pulmonary emboli. No evidence of pulmonary infarction. 2. The ascending thoracic aorta is dilated to 4.1 cm. Cannot assess for dissection as there is no IV contrast in the aortic arch. 3. Pleural effusions, right larger than left Patchy bilateral ground-glass opacities in the lung tsang probably atelectasis or air trapping. RADIATION DOSE DELIVERED: 135.39mGy.cm Total DLP DATA REPOSITORY: All CT scans at this facility are submitted to the National Radiology Data Registry (NRDR) Dose Index Registry (DIR) with the [employer] (A[employer]). RADIATION OPTIMIZATION: All CT scans at this facility use at least one of these dose optimization te chniques: automated exposure control; mA and/or kV adjustment per patient size (includes targeted exa ms where dose is matched to clinical indication); or iterative reconstruction.
[2024-05-12] MEDS: Metoprolol 5 MG/5 ML VIAL IVP (11:08)
[2024-05-12 11:32] LABS: Troponin I 55 ng/L (<or=51)
[2024-05-12] MEDS: Normal Saline - Diluent 50 ML VIAL IJ (11:45)
[2024-05-12] MEDS: Omnipaque 350 MG/ML 100 ML BTL IJ (11:46)
--- NOTE | 2024-05-12 11:59 | DI.VRAD_ITS ---
PROCEDURE INFORMATION: Exam: CTA Chest With Contrast Exam date and time: 05/12/2024 11:33 AM Age: 68 years old Clinical indication: Shortness of breath TECHNIQUE: Imaging protocol: Computed tomographic angiography of the chest with contrast. Exam focused on the arteries. 3D rendering (Not supervised by radiologist): MIP and/or 3D reconstructed images were created by the technologist. Contrast material: OMNIPAQUE 350; Contrast volume: 100 ml; Contrast route: INTRAVENOUS (IV); COMPARISON: CT Chest w/o Contrast 11/27/2023 12:58 PM FINDINGS: Pulmonary arteries: No evidence of pulmonary embolus to the segmental level. Aorta: Unruptured aneurysm of the ascending aorta 4.4 x 4.1 cm. No dissection of the aorta. Lungs: Patchy bilateral ground-glass opacities may represent atelectasis or minimal pneumonia.. Pleural spaces: Small bilateral pleural effusions. Heart: Unremarkable. No cardiomegaly. No pericardial effusion. Coronary arteries: Coronary artery calcifications may indicate coronary artery disease. Lymph nodes: Pathologic node in the preaortic region 16 x 11 mm . Bones/joints: Compression fractures of unknown age T2, T3, T4 Soft tissues: Unremarkable. IMPRESSION: 1. No evidence of pulmonary embolus to the segmental level. 2. Unruptured aneurysm of the ascending aorta 4.4 x 4.1 cm. 3. No dissection of the aorta. 4. Patchy bilateral ground-glass opacities may represent atelectasis or minimal pneumonia.. 5. Small bilateral pleural effusions. Dictated and Authenticated by: Mandi Fenton MD. Ordering:LeonilaCHRISTIANNE Herrera MD
--- NOTE | 2024-05-12 12:20 | W.PM.HP.N ---
Date of service: 05/12/24 Time of Service: 12:20 Assessment and Plan Assessment and plan (1) Acute on chronic respiratory failure with hypoxia: Status: Acute Assessment and plan: Potentially secondary to acute exacerbation of presumed HFpEF as noted below -Patient does have chronic hypoxic respiratory failure requiring CPAP and 4 L nasal cannula overnight -Currently requiring 4 L nasal cannula even during the day -Continue diuresis as noted below and wean supplemental oxygen as tolerated (2) Acute exacerbation of CHF (congestive heart failure): Status: Acute Assessment and plan: - Patient had elevated proBNP in the emergency department and has a history of HFpEF was unable to find documentation of echocardiogram -Echocardiogram ordered for tomorrow morning -Given 80 mg IV Lasix in the emergency department with good improvement -Will continue 40 mg IV Lasix twice daily -Continue to monitor I's and O's (3) Obesity hypoventilation syndrome: Status: Acute Assessment and plan: - Patient has a BMI of 38.6 -Longstanding diagnosis, and likely cause of patient's HFpEF, presumed right-sided heart failure and pHTN (4) Pulmonary hypertension: Status: Acute (5) BMI 36.0-36.9,adult: Status: Acute (6) Non-insulin dependent type 2 diabetes mellitus: Status: Acute Assessment and plan: - Continue home metformin History of Present Illness History of Present Illness Chief Complaint: shortness of breath Narrative: 68-year-old morbidly obese female with a past medical history of obesity hypoventilation syndrome on at bedtime CPAP and 4 L nasal cannula at night, HFpEF, hypothyroidism, NIDDM who presents to the emergency department with worsening shortness of breath. Patient states that over the last 3 days she has had worsening shortness of breath but it is not been associated with any fever or cough. She normally uses 4 L of oxygen at night with her CPAP but over the last few days has required it during the day. In addition, she states she has she has been unable to sleep due to her shortness of breath does report some mild chest discomfort particularly with deep inhalation. She also says that she was prescribed an inhaler which she picked up from the pharmacy but has not started using it yet. She denies any lightheadedness, dizziness, fever, nausea vomiting or diarrhea. In the emergency department the patient was noted as having initially elevated blood pressure of 221/148 that was improved after dose of IV Lopressor. Her pulse has been in the 80s to 90s, she is afebrile, and desaturated to 82% on room air and was placed back on 4 L nasal cannula to maintain oxygen saturation between 88 and 92%. CBC showed a white blood cell count of 12.2, with otherwise normal CBC, CMP showed mildly elevated creatinine from baseline of 1.6 (baseline 1.3), and initial troponin of 54 that was roughly the same on repeat of 55, but an elevated proBNP of 6486. Patient does carry a history of HFpEF but no recent echocardiogram could be found. Patient had a CTA for concern for possible PE which did not show any pulmonary emboli but did show patchy bilateral groundglass opacities that may represent atelectasis or minimal pneumonia as well as small bilateral pleural effusions. While in the emergency department patient also received one-time dose of 80 mg IV Lasix, as well as azithromycin and ceftriaxone. At which time emergency room physician paged hospitalist for admission the patient with acute on chronic hypoxic respiratory failure potentially due to community-acquired pneumonia and or acute exacerbation of HFpEF in the setting of likely right-sided heart failure secondary to obesity hypoventilation syndrome. Review of Systems All systems reviewed & are unremarkable except as noted in HPI and below PFSH All Active Problems (Updated 05/12/24 @ 12:53 by Andrew Aguilar MD) Non-insulin dependent type 2 diabetes mellitus (Acute) Acute exacerbation of CHF (congestive heart failure) (Acute) Acute on chronic respiratory failure with hypoxia (Acute) BMI 36.0-36.9,adult (Acute) Obesity hypoventilation syndrome (Acute) Heart failure with preserved ejection fraction (HFpEF, >= 50%) (Acute) Pulmonary hypertension (Acute) Restrictive lung disease (Acute) KATHERYN (obstructive sleep apnea) (Chronic) Ptosis (Acute) Shortness of breath (Acute) Grief (Chronic) Vaginal pain (Acute) Nephrolithiasis (Chronic) Medical History 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 Diabetes NIDDM Mild hyperparathyroidism Galactorrhea Hypertriglyceridemia Anxiety Secondary hyperprolactinemia due to pituitary adenoma Lumbar scoliosis Fibromyalgia Chronic fatigue syndrome Obesity Open-angle glaucoma Hypothyroidism Hypertensive disorder Surgical History H/O ureteroscopy Hx of section x 2 H/O tubal ligation Hx of cholecystectomy H/O: hysterectomy H/O bilateral oophorectomy History of carpal tunnel release Umbilical hernia repair of recurrent incarcerated H/O hernia repair Family History Mother Pulmonary fibrosis ILD (interstitial lung disease) Sister History of lobectomy of lung partial Social History Smoking/Tobacco Use Status: Former Tobacco Use Quit Date: 07/17/85 Smoking risk assessment performed?: Yes Alcohol Intake: never Drug use: Never Substance use type: does not use Housing: other Do you feel safe at home: Yes Do you feel safe in your relationship?: Yes Meds Allergies and Home Medications Allergies Allergy/AdvReac Type Severity Reaction Status Date / Time tetanus toxoid, adsorbed Allergy Intermediate edema Verified 05/12/24 09:55 BHUMI Inhibitors Allergy Unknown Unknown Verified 05/12/24 09:55 acetaminophen (From Percocet) Allergy Unknown Verified 05/12/24 09:55 codeine Allergy Unknown Verified 05/12/24 09:55 diazepam Allergy Unknown Verified 05/12/24 09:55 egg Allergy Unknown Verified 05/12/24 09:55 erythromycin base Allergy Unknown Verified 05/12/24 09:55 fentanyl Allergy Unknown Verified 05/12/24 09:55 levofloxacin Allergy Unknown Verified 05/12/24 09:55 morphine Allergy Unknown Verified 05/12/24 09:55 nitrofurantoin (From Allergy Unknown Verified 05/12/24 09:55 Macrobid) nitrofurantoin Allergy Unknown Verified 05/12/24 09:55 macrocrystalline (From Macrobid) oxycodone Allergy Unknown Verified 05/12/24 09:55 pistachio nut Allergy Unknown Verified 05/12/24 09:55 shellfish derived Allergy Unknown Verified 05/12/24 09:55 Sulfa (Sulfonamide Allergy Unknown Verified 05/12/24 09:55 Antibiotics) sulfur (From Sulfur-8) Allergy Unknown Verified 05/12/24 09:55 tomato Allergy Unknown Verified 05/12/24 09:55 prednisone AdvReac Unknown Verified 05/12/24 09:55 pisachios Allergy Unknown Uncoded 05/12/24 09:55 Home Medications ?Medication ?Instructions ?Recorded ?Confirmed ?Type Catnip 01/29/16 03/22/24 History bee pollen 550 mg capsule 550 mg PO DAILY 01/29/16 05/12/24 History calcium 500 mg-vitamin D3 1,000 2 ea PO DAILY 01/29/16 05/12/24 History unit-vitamin K 40 mcg chewable tablet ginkgo biloba leaf extract 60 mg 120 mg PO BID 01/29/16 05/12/24 History tablet multivitamin (Once Daily tablet) 1 ea PO DAILY 01/29/16 05/12/24 History omega 5-syw-qhy-fish oil 1,000 mg 2,000 mg PO DAILY 01/29/16 05/12/24 History (120 mg-180 mg) capsule blood sugar diagnostic (FreeStyle 05/22/17 03/22/24 History Test strips) gemfibrozil 600 mg tablet (Lopid) 600 mg PO BID 05/22/17 05/12/24 History chlordiazepoxide HCl 5 mg capsule 5 mg PO ONE TAB PM,2 TABS HS 09/26/17 05/12/24 History bimatoprost 0.01 % eye drops 1 drp ophthalmic (eye) DAILY 12/20/22 05/12/24 History metformin 500 mg tablet 500 mg PO DAILY 12/20/22 05/12/24 History phenazopyridine 200 mg tablet 200 mg PO DAILY PRN 12/20/22 05/12/24 History fluticasone propionate 50 2 spray intranasal DAILY 05/26/23 05/12/24 History mcg/actuation nasal spray,suspension (Flonase Allergy Relief) losartan 50 mg tablet 50 mg PO BID 05/26/23 05/12/24 History albuterol sulfate 90 mcg/actuation 2 puff inhalation Q4H PRN #8.5 06/19/23 05/12/24 Rx aerosol inhaler (ProAir HFA) grams levothyroxine 50 mcg capsule 75 mcg PO DAILY 11/22/23 05/12/24 History Exam Narrative Exam Narrative: Elderly obese female laying in bed in no acute distress, ANO x 4, 4 L nasal cannula in place, heart regular rhythm, lungs with diminished breath sounds in bilateral bases with diffuse crackles, abdomen soft, nontender, nondistended Results Labs 05/12/24 09:58 05/12/24 09:58 Labs: Laboratory Results - last 24 hr 05/12/24 05/12/24 09:58 11:02 WBC 12.15 H RBC 4.11 Hgb 11.6 Hct 37.9 MCV 92 MCH 28.2 MCHC 30.6 L RDW 13.9 Plt Count 293 MPV 9.7 Immature Gran % 0.5 Neutrophils % 71.4 Lymphocytes % 18.2 Monocytes % 7.8 Eosinophils % 1.6 Basophils % 0.5 Nucleated RBC % 0.0 Absolute Neutrophils 8.68 H Absolute Lymphocytes 2.21 Absolute Monocytes 0.95 H Absolute Eosinophils 0.19 Absolute Basophils 0.06 VBG pH 7.37 VBG pCO2 49 VBG pO2 34 VBG HCO3 29 H VBG Total CO2 VBG O2 Saturation VBG Base Excess 3 Sodium 145 Potassium 4.3 Chloride 107 Carbon Dioxide 28.6 Anion Gap 9.4 BUN 43 H Creatinine 1.6 H Est GFR (CKD-EPI 2020) 34.70 Glucose 132 H Calcium 9.3 Magnesium 2.0 Total Bilirubin 0.38 AST 11 L ALT 15 Alkaline Phosphatase 104 Troponin I 54 H* 55 H* NT-Pro-B Natriuret Pep 6486 H Total Protein 7.9 Albumin 3.6 COVID-19 Source Nasopharynx SARS-CoV-2 (PCR) Negative Influenza Type A (PCR) Negative Influenza Type B (PCR) Negative RSV (PCR) Negative Last Vital Signs Temp 97.6 F 05/12/24 09:38 Pulse 98 H 05/12/24 11:08 Resp 23 05/12/24 11:10 BP 162/110 H 05/12/24 11:10 Pulse Ox 95 05/12/24 11:32 Time Spent Time spent with Patient: >75 minutes Time was spent: preparing to see the patient(eg.review tests), obtaining and/or reviewing separately otained hiistory, ordering medications,tests, procedures, referring, communicating with other health childbirth and infant care teacher, indepentently interpreting results, counseling the patient and care coordination
--- NOTE | 2024-05-12 13:19 | W.PC.ACHO ---
Registration Status: Primary Language: Preferred Language: ED Information & Data Chief Complaint SOB 05/12/24 11:10 Triage Note Typically on 4 lpm at home. 05/12/24 09:38 C/o increased difficulty breathing X2 months. Denies fevers, stated diff breathing has worsened. 86% RA on arrival. Put on NC . Has some CP. Tachycardic at 105. Pulmonary clinic said has stuff in lung Medical / Surgical History (Last Reviewed 05/12/24 @ 11:01 by Jessica Duran MD) 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 Diabetes Mild hyperparathyroidism Galactorrhea Hypertriglyceridemia Anxiety Secondary hyperprolactinemia Lumbar scoliosis Fibromyalgia Chronic fatigue syndrome Obesity Open-angle glaucoma Hypothyroidism Hypertensive disorder (Last Reviewed 05/12/24 @ 11:01 by Jessica Duran MD) H/O ureteroscopy Hx of section H/O tubal ligation Hx of cholecystectomy H/O: hysterectomy H/O bilateral oophorectomy History of carpal tunnel release Umbilical hernia H/O hernia repair Most Recent Vital Signs Temperature 36.4 C 05/12/24 09:38 Temperature Source Temporal Artery Scan 05/12/24 09:38 Pulse 98 H 05/12/24 11:08 Pulse 84 05/12/24 11:10 Respiratory Rate 23 05/12/24 11:10 Respiratory Effort Short of Breath, Labored 05/12/24 09:47 Respiratory Depth Shallow 05/12/24 09:47 Respiratory Pattern Tachypnea 05/12/24 09:47 Blood Pressure 162/110 H 05/12/24 11:10 Blood Pressure Mean 158 05/12/24 11:05 Blood Pressure Position Sitting 05/12/24 09:47 Pulse Oximetry 95 05/12/24 11:32 Oxygen Delivery Method Nasal Cannula 05/12/24 11:32 Oxygen Flow Rate 4 05/12/24 11:32 Pain Level 2 05/12/24 09:47 Allergies tetanus toxoid, adsorbed Allergy (Intermediate, Verified 05/12/24 09:55) edema BHUMI Inhibitors Allergy (Unknown, Verified 05/12/24 09:55) Unknown acetaminophen (From Percocet) Allergy (Verified 05/12/24 09:55) Unknown codeine Allergy (Verified 05/12/24 09:55) Unknown diazepam Allergy (Verified 05/12/24 09:55) Unknown egg Allergy (Verified 05/12/24 09:55) Unknown erythromycin base Allergy (Verified 05/12/24 09:55) Unknown fentanyl Allergy (Verified 05/12/24 09:55) Unknown levofloxacin Allergy (Verified 05/12/24 09:55) Unknown morphine Allergy (Verified 05/12/24 09:55) Unknown nitrofurantoin (From Macrobid) Allergy (Verified 05/12/24 09:55) Unknown nitrofurantoin macrocrystalline (From Macrobid) Allergy (Verified 05/12/24 09:55) Unknown oxycodone Allergy (Verified 05/12/24 09:55) Unknown pistachio nut Allergy (Verified 05/12/24 09:55) Unknown shellfish derived Allergy (Verified 05/12/24 09:55) Unknown Sulfa (Sulfonamide Antibiotics) Allergy (Verified 05/12/24 09:55) Unknown sulfur (From Sulfur-8) Allergy (Verified 05/12/24 09:55) Unknown tomato Allergy (Verified 05/12/24 09:55) Unknown prednisone Adverse Reaction (Verified 05/12/24 09:55) Unknown pisachios Allergy (Uncoded 05/12/24 09:55) Unknown Precautions Isolation Droplet precaution 05/12/24 09:47 Active Medications Generic Name Dose Route Start Last Admin Trade Name Freq PRN Reason Stop Dose Admin Iohexol 100 ml 05/12/24 12:00 05/12/24 11:46 Omnipaque 350 Mg/Ml 100 Ml Btl IJ 06/11/24 23:59 100 ml DIRECTED CHARLEY Administration Sodium Chloride 50 ml 05/12/24 11:45 05/12/24 11:45 Normal Saline - Diluent 50 Ml Vial IJ 50 ml .FOR DI USE CHARLEY Administration IV IV Catheter Type [Right Saline Lock Antecubital] IV Catheter Gauge [Right 18 Antecubital] Diagnostics 05/12/24 05/12/24 05/12/24 Range/Units 13:08 11:02 09:58 WBC 12.15 H (4.4-10.8) 10^3/uL RBC 4.11 (3.93-5.22) 10^6/uL Hgb 11.6 (11.2-15.7) g/dL Hct 37.9 (36.0-46.0) % MCV 92 (80-95) fL MCH 28.2 (27.0-33.0) pg MCHC 30.6 L (32.0-36.0) % RDW 13.9 (11.7-14.6) % Plt Count 293 (130-400) 10^3/uL MPV 9.7 (8.0-11.0) fL Immature Gran % 0.5 % Neutrophils % 71.4 % Lymphocytes % 18.2 % Monocytes % 7.8 % Eosinophils % 1.6 % Basophils % 0.5 % Nucleated RBC % 0.0 (0.0-0.3) % Absolute Neutrophils 8.68 H (1.2-6.7) 10^3/uL Absolute Lymphocytes 2.21 (1.2-3.4) 10^3/uL Absolute Monocytes 0.95 H (0.1-0.8) 10^3/uL Absolute Eosinophils 0.19 (0.0-0.7) 10^3/uL Absolute Basophils 0.06 (0.0-0.2) 10^3/uL VBG pH 7.37 (7.31-7.41) VBG pCO2 49 (41-51) mmHg VBG pO2 34 mmHg VBG HCO3 29 H (23-28) mmol/L VBG Total CO2 (24-29) mmol/L VBG O2 Saturation % VBG Base Excess 3 (-2-3) mmol/L Sodium 145 (136-145) mmol/L Potassium 4.3 (3.5-5.1) mmol/L Chloride 107 (98-107) mmol/L Carbon Dioxide 28.6 (21.0-32.0) mmol/L Anion Gap 9.4 (3-11) mmol/L BUN 43 H (7-18) mg/dL Creatinine 1.6 H (0.55-1.02) mg/dL Est GFR (CKD-EPI 2020) 34.70 (mL/min/1.73m2) Glucose 132 H (74-106) mg/dL Calcium 9.3 (8.5-10.1) mg/dL Magnesium 2.0 (1.8-2.4) mg/dL Total Bilirubin 0.38 (0.2-1.0) mg/dL AST 11 L (15-37) U/L ALT 15 (14-59) U/L Alkaline Phosphatase 104 (46-116) U/L Troponin I Pending 55 H* 54 H* (<or=51) ng/L NT-Pro-B Natriuret Pep 6486 H (<300) pg/mL Total Protein 7.9 (6.4-8.2) g/dL Albumin 3.6 (3.4-5.0) g/dL COVID-19 Source Nasopharynx SARS-CoV-2 (PCR) Negative (Negative) Influenza Type A (PCR) Negative (Negative) Influenza Type B (PCR) Negative (Negative) RSV (PCR) Negative (Negative) [id number] Documentation Fingerstick Glucose Start: 05/12/24 10:30 Freq: Status: Active Protocol: Activity Type Activity Date Activity User E-sign Co-sign Detail Recorded Client Recorded Date Recorded By Document 05/12/24 10:33 BKG DAEMON(10) [id number] 05/12/24 10:35 BKG DAEMON(10) Intake and Output - 24 Hour Total 05/12/24 09:31 thru 05/12/24 09:38 Weight 101.877 kg Falls Risk Assessment History of Falls Previous History 05/12/24 09:47 Contributing Factors Confusion,Unstable, 05/12/24 09:47 Impairments,Incontinence Ambulatory Aids Independent 05/12/24 09:47 Tubes/Lines W/no contributing factors 05/12/24 09:47 Gait Evaluation No gait disturbance 05/12/24 09:47 Cognition No cognitive impairment 05/12/24 09:47 Fall Total Score 37 05/12/24 09:47 Level of Risk Moderate Risk 05/12/24 09:47 Problems (Last Reviewed 05/12/24 @ 11:01 by Jessica Duran MD) Non-insulin dependent type 2 diabetes mellitus (Acute) Acute exacerbation of CHF (congestive heart failure) (Acute) Acute on chronic respiratory failure with hypoxia (Acute) BMI 36.0-36.9,adult (Acute) Obesity hypoventilation syndrome (Acute) Pulmonary hypertension (Acute) v v v v v v v v v Sending and/or Receiving Nurses: Please use comment section below to note any information pertinent to the patient hand-off not included above. Information / Comments: Received report and pt is going to room 214. Report received from: Dru Correa RN at 1312
[2024-05-12] MEDS: cefTRIAXone 2 GM/50 ML BAG IVPB (13:31)
[2024-05-12] MEDS: Furosemide 100 MG/10 ML VIAL 80 MG IVP (13:31)
[2024-05-12] MEDS: AZITHROMYCIN 500 MG in DEXTROSE 5%-WATER 250 ML 250 MG IVPB (13:31)
[2024-05-12 13:40] LABS: Troponin I 66 ng/L (<or=51)
[2024-05-12] MEDS: Normal Saline Flush 10 ML SYR IVP ×2 (14:51→20:17)
[2024-05-12] MEDS: Gemfibrozil 600 MG TAB PO (20:16)
[2024-05-12] MEDS: Losartan 50 MG TAB PO (20:16)
--- NOTE | 2024-05-13 00:03 | RESPIRATORY ---
RT spoke with patient regarding KATHERYN diagnosis. Pt. is unsure if she has KATHERYN but informed RT that she uses nocturnal O2, 4L/min NC at baseline through [facility].
[2024-05-13 03:24] VITALS: BP 166/110; PULSE 74; RESP 22; TEMP 35.8; O2SAT 99
[2024-05-13] MEDS: Levothyroxine 75 MCG TAB PO (06:07)
[2024-05-13 06:21] LABS: HCT 36.2 % (36.0-46.0); HGB 11.3 g/dL (11.2-15.7); MCH 28.6 pg (27.0-33.0); MCHC 31.2 % (32.0-36.0); MCV 92 fL (80-95); MPV 9.9 fL (8.0-11.0); Platelet Count 275 10^3/uL (130-400); RBC 3.95 10^6/uL (3.93-5.22); RDW 13.8 % (11.7-14.6); RDW-SD 46.3 fL; WBC 12.98 10^3/uL (4.4-10.8)
[2024-05-13 06:36] LABS: Anion Gap 7.9 mmol/L (3-11); BUN 42 mg/dL (7-18); CO2 33.1 mmol/L (21.0-32.0); CREATININE 1.7 mg/dL (0.55-1.02); Calcium 9.1 mg/dL (8.5-10.1); Chloride 105 mmol/L (98-107); Estimated GFR 32.26 (mL/min/1.73m2); Glucose 128 mg/dL (74-106); Potassium 3.8 mmol/L (3.5-5.1); Sodium 146 mmol/L (136-145)
[2024-05-13 06:59] VITALS: BP 154/94; PULSE 78; RESP 20; TEMP 35.5; O2SAT 100
[2024-05-13 07:00] VITALS: O2SAT 100
--- NOTE | 2024-05-13 07:30 | DI.US_ITS ---
APPROVED REPORT EXAM: Comprehensive 2D, Doppler, and color-flow Echocardiogram Patient Location: In-Patient Room/Bed: 214 [employer] Operator: Ines Aguirre RDCS (AE) Indications: HFpEF exacerbation, SOB Other Information Study Quality: Adequate Conclusion Mild concentric left ventricular hypertrophy. Ejection fraction is 40%. There are inferior and sept al wall motion abnormalities Normal right ventricular size and function Both atria are normal in size Aortic valve is sclerotic and trileaflet with mild regurgitation. There is no significant aortic kem nosis. Mean gradient is less than 10 mmHg Mildly thickened mitral leaflets. Moderate to severe mitral regurgitation Estimated right ventricular systolic pressure is 51 mmHg Ascending aorta measures 3.7 cm Wall motion Left Ventricle Left ventricle is mildly dilated. Left ventricular systolic function is moderately decreased. Mild co ncentric left ventricular hypertrophy. Regional wall motion abnormalities are noted. There is no vent ricular septal defect visualized. LVEF is 39%. Right Ventricle Right ventricle is grossly normal in size. Right ventricular systolic function is grossly normal. Atria The left atrium size is normal. The right atrium size is normal. The interatrial septum is intact wit h no evidence for an atrial septal defect. Aortic Valve The Aortic valve is sclerotic. Aortic valve is trileaflet. There is no aortic valvular stenosis. Mild aortic regurgitation. Mitral Valve Mitral valve leaflets are mildly thickened. No evidence of mitral valve stenosis. Moderate to severe mitral regurgitation Tricuspid Valve The tricuspid valve is normal in structure. There is no tricuspid valve stenosis. Mild tricuspid regu rgitation. The RVSP is 51.2 mmHg. Pulmonic Valve The pulmonary valve is normal in structure. There is no pulmonic valvular stenosis. Trace pulmonic re gurgitation. Great Vessels The aortic root is normal in size. The ascending aorta is mildly dilated. Aortic arch is not well vis ualized. IVC is normal in size and collapses >50% with inspiration. Pericardium Trace pericardial effusion. 2D Dimensions IVSD d PLAX 1.10 cm F: 0.6-1.0 Ao Root d 2.74 cm F: 2.7 - 3.3 LVPW d PLAX 1.10 cm F: 0.6 - 1.0 Ao Asc Diam d 3.67 cm F: 2.3 - 3.1 LVID d PLAX 5.91 cm F: 3.8 - 5.2 LVDs 4.90 cm F: 2.2 - 3.5 LV EF Teichholz 35.0 % FS 17.03 % LV EDV (Teich) 173.6 mL LV ESV (Teich) 112.8 mL M-Mode TAPSE 1.82 cm (M/F) >1.7 Auto EF LV EDV A4C 191.8 mL LV EDV A2C 134.0 mL LV EDV BP 169.6 mL LV ESV A4C 121.0 mL LV ESV A2C 79.8 mL LV ESV BP 103.1 mL LVEF(%) A4C 36.9 % LVEF(%) A2C 40.4 % LVEF(%) BP 39.2 % LV SV A4C 70.8 ml LV SV A2C 54.2 ml LV SV BP 66.5 ml LV CO A4C 4.8 L/min LV CO A2C 3.7 L/min LV CO BP 4.2 L/min HR A4C 67.29 BPM HR A2C 68.18 BPM LV EDV Index (BP) LV Strain Long Pk Overal Avg (s) 10.31 RV Strain Global Peak Long. Strain A4C 15.29 Global Peak Long. Strain A4C FW 21.78 LA Volume LA Length A4C 5.1 cm LA Length A2C 5.2 cm LA Area A4C s 20.73 cm2 LA Area A2C s 18.80 cm2 LA Vol A4C A-L 70.88 mL LA Vol A2C A-L 58.10 mL LA Vol Biplane A-L 64.3 mL LA Vol/BSA A4C A-L LA Vol/BSA A2C A-L LA Vol/BSA BP A-L 31.4 mL/m2 LA Vol A4C MOD 63.6 mL LA Vol A2C MOD 55.4 mL LA Vol BP MOD 59.3 mL RA Volume RA Area A4C 17.6 cm2 RA ESV A4C (A-L) 49.6mL RA Vol/BSA A4C A-L RA Length A4C 5.3 cm RA ESV A4C (MOD) 45.9mL LV Diastology MV E' medial 0.057 (>0.07 m/s) MV E Vmax 1.16 (0.4-1.3 m/s) MV E/E' MED 20.47 (<14) MV A Vmax 1.05 (0.4-1.3 m/s) MV E' lateral 0.077 (>0.1 m/s) E/A Ratio 1.1 MV E/E' LAT 15.03 (<14) MV E' Average 0.067 m/s MV E/E'(average) 17.33 Aortic Valve AoV Vmax 2.03 m/s LVOT Vmax 1.10 m/s AoV Peak Grad 49.9 mmHg LVOT Peak Grad 4.8 mmHg AoV Area (Vmax) 1.66 cm2 LVOT VTI 0.215 m AoV VTI 0.392 m LVOT Mean Grad 2.6 mmHg AoV Mean Walter. 1.37 m/s LVOT SV 65.67 mL AoV Mean Grad 9.0 mmHg LVOT Diam s 1.95 cm AoV Area (VTI) 1.68 cm2 AV Regurg Peak Gr. 16.42 mmHg Velocity Ratio 0.54 AR Decel Perry 2.5m/sec2 AR DT 1815 msec AR PHT 526 msec AR Vmax 4.57 m/s Mitral Valve MV DT 160 (160-240 msec) MV Vmax TIPS 1.21 m/s MV Mean Grad 2.6 (<2mmHg) MV VTI 0.392 m Pulmonary Valve PV Vmax 0.97 (0.5-1.5 m/s) RVOT Vmax 1.02 m/s PV Peak Grad 3.7 mmHg RVOT Peak Gr. 4.1 mmHg PV Mean Walter 0.58 m/s RVOT VTI 0.161 m PV Mean Grad 1.7 mmHg RVOT Mean Gr. 1.8 mmHg Tricuspid Valve RA Pressure 8.00 mmHg TR Vmax 3.28 m/s TV S' 0.11 m/s TR Peak Grad 43.1 mmHg RVSP (TR) 51.2 mmHg
[2024-05-13] MEDS: Fluticasone NASAL SPRAY 16 GM BTL NS (08:34)
[2024-05-13] MEDS: Enoxaparin 40 MG/0.4 ML SYR SC (08:34)
[2024-05-13] MEDS: Losartan 50 MG TAB PO (08:35)
[2024-05-13] MEDS: Gemfibrozil 600 MG TAB PO (08:35)
[2024-05-13] MEDS: Furosemide 40 MG/4 ML VIAL IVP (08:35)
[2024-05-13] MEDS: Normal Saline Flush 10 ML SYR IVP (08:35)
[2024-05-13 08:50] VITALS: O2SAT 98
[2024-05-13 10:59] VITALS: BP 148/94; PULSE 75; RESP 20; TEMP 35.8; O2SAT 93
--- NOTE | 2024-05-13 12:15 | DSE_ITS ---
Date of service: 05/13/24 Time of Service: 16:00 DS: Diagnosis Discharge Diagnosis (1) Acute on chronic respiratory failure with hypoxia: Status: Acute (2) Acute exacerbation of CHF (congestive heart failure): Status: Acute (3) Obesity hypoventilation syndrome: Status: Acute (4) Pulmonary hypertension: Status: Acute (5) BMI 36.0-36.9,adult: Status: Acute (6) Non-insulin dependent type 2 diabetes mellitus: Status: Acute Discharge Plan Disposition Patient Disposition: Home Condition: Good Discharge Details Reason For Visit: Acute on Chronis Hypoxic Respiratory Failure Admit Date/Time: 05/12/24 12:20 Admit Provider: Andrew Aguilar Attending Provider: Andrew Aguilar Primary Care Provider: Kavya Pendleton Hospital Course Hospital Course: Patient initially presented with signs and symptoms of what appeared to be worsening HFpEF exacerbation in the setting of obesity hypoventilation syndrome and pulmonary hypertension. However, echocardiogram done on the morning of 05/13/2024 did show an EF of 40% with regional wall motion abnormality in the inferior and septal wall. While patient did have very low troponin of about 50 that was flat during hospitalization, and at no point did she complain of any chest pain, though raises suspicion for patient having had HI in recent past. Will be recommended that patient have outpatient nuclear stress test. Additionally, given new decrease in EF it would be recommended for her to be on Entresto or BHUMI inhibitor though she has documented allergy. Therefore, patient will be discharged with 20 mg p.o. Lasix daily. Home Meds and New Rx's Prescriptions: New furosemide [Lasix] 20 mg tablet 20 mg PO DAILY Qty: 90 0RF Continued bimatoprost 0.01 % drops 1 drp ophthalmic (eye) DAILY phenazopyridine 200 mg tablet 200 mg PO DAILY PRN levothyroxine 50 mcg capsule 75 mcg PO DAILY multivitamin [Once Daily] 1 EACH tablet 1 ea PO DAILY omega 5-gvz-ugn-fish oil 1,000 MG capsule 2,000 mg PO DAILY calcium-vitamin D3-vitamin K 1 EACH tablet,chewable 2 ea PO DAILY bee pollen 550 MG capsule 550 mg PO DAILY ginkgo biloba leaf extract 60 MG tablet 120 mg PO BID CATNIP gemfibrozil [Lopid] 600 MG tablet 600 mg PO BID chlordiazepoxide HCl 5 MG capsule 5 mg PO ONE TAB PM,2 TABS HS metformin 500 mg tablet 500 mg PO DAILY fluticasone propionate [Flonase Allergy Relief] 50 mcg/actuation spray,suspension 2 spray intranasal DAILY Rx Instructions: administer into each nostril losartan 50 mg tablet 50 mg PO BID albuterol sulfate [ProAir HFA] 90 mcg/actuation HFA aerosol inhaler 2 puff Inhalation Q4H PRN Qty: 8.5 6RF No Action (DME) FreeStyle Test 1 EACH strip 1 ea Miscellaneous DIRECTED. Discharge Instructions Stand Alone Forms: Nursing Discharge Form Referrals: Kavya Pendleton [Primary Care Provider] - 05/20/24 1:20 pm Activity:: Activity as Tolerated Equipment/Supplies:: No Equipment Needed Diet:: As Tolerated Discharge Orders Discharge Orders: Discharge Order (Routine); Ordered 05/13/24 Ordered By: Andrew Aguilar Other Ambulatory Orders: [facility] MPI rest & stress grp (Routine) Timeframe: 10 Day Facility: [facility] - Location: DIAGNOSTIC IMAGING Ordered By: Andrew Aguilar Discharge Data Discharge Date/Time-TO BE ENTERED AT DEPARTURE: 05/13/24 13:29 DS: Summary Time Spent with Patient providing and/or coordinating discharge services: Greater than 30 minutes Status at Discharge Functional status at discharge: independent ambulation Overall status at discharge: patient is back to baseline Mental Status: mental status grossly normal Speech and Movement: speech and movement normal Mood: congruent mood Affect: normal affect Quality:SDOH Health Related Social Needs: No Data to Display Exam Narrative Exam Narrative: Elderly obese female laying in bed in no acute distress, ANO x 4, now on RA, heart regular rhythm, lungs with diminished breath sounds in bilateral bases with diffuse crackles, abdomen soft, nontender, nondistended Psych Mental Status: mental status grossly normal Speech and Movement: speech and movement normal Mood: congruent mood Affect: normal affect DS: Data Vitals/I&O Vitals and I&O: Vital Signs Temperature 96.4 F L 05/13/24 10:59 Temperature Source Temporal Artery Scan 05/13/24 10:59 Pulse 75 05/13/24 10:59 Pulse Rhythm Regular 05/12/24 14:20 Pulse 87 05/12/24 13:20 Respiratory Rate 20 05/13/24 10:59 Respiratory Effort Short of Breath 05/12/24 14:20 Respiratory Depth Deep 05/12/24 14:20 Respiratory Pattern Normal 05/12/24 14:20 Blood Pressure 148/94 H 05/13/24 10:59 Blood Pressure Mean 158 05/12/24 13:00 Blood Pressure Position Sitting 05/12/24 09:47 Pulse Oximetry 93 05/13/24 10:59 Oxygen Delivery Method Room Air 05/13/24 10:59 Oxygen Flow Rate 0 05/13/24 10:59 Pain Level 0 05/13/24 06:59 Comment RN notified. 05/13/24 10:59 Intake & Output 05/12/24 05/13/24 05/13/24 17:59 05:59 17:59 Intake Total 550 / 550 10 / 560 Output Total 1200 / 1200 1800 / 3000 300 / 300 Balance -650 / -650 -1790 / -2440 -300 / -300 Weight 224 lb 9.6 oz Intake: IV 300 / 300 10 / 310 Oral 250 / 250 Output: Urine 1200 / 1200 1800 / 3000 300 / 300 Other: Urine Color Yellow Yellow Yellow Urine Appearance Clear Cloudy Cloudy Urine Odor Normal Normal Stool Size Large Stool Characteristics Soft Brown Data Completed and Pending Labs on day of discharge: Labs from last 24 hours 05/13/24 05/12/24 06:00 13:08 WBC 12.98 H RBC 3.95 Hgb 11.3 Hct 36.2 MCV 92 MCH 28.6 MCHC 31.2 L RDW 13.8 Plt Count 275 MPV 9.9 Sodium 146 H Potassium 3.8 Chloride 105 Carbon Dioxide 33.1 H Anion Gap 7.9 BUN 42 H Creatinine 1.7 H Est GFR (CKD-EPI 2020) 32.26 Glucose 128 H Calcium 9.1 Magnesium 2.0 Troponin I 66 H* PFSH All Active Problems (Updated 05/13/24 @ 12:15 by Andrew Aguilar MD) HFrEF (heart failure with reduced ejection fraction) (Acute) Non-insulin dependent type 2 diabetes mellitus (Acute) Acute exacerbation of CHF (congestive heart failure) (Acute) Acute on chronic respiratory failure with hypoxia (Acute) BMI 36.0-36.9,adult (Acute) Obesity hypoventilation syndrome (Acute) Heart failure with preserved ejection fraction (HFpEF, >= 50%) (Acute) Pulmonary hypertension (Acute) Restrictive lung disease (Acute) KATHERYN (obstructive sleep apnea) (Chronic) Ptosis (Acute) Shortness of breath (Acute) Grief (Chronic) Vaginal pain (Acute) Nephrolithiasis (Chronic) Medical History 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 Diabetes NIDDM Mild hyperparathyroidism Galactorrhea Hypertriglyceridemia Anxiety Secondary hyperprolactinemia due to pituitary adenoma Lumbar scoliosis Fibromyalgia Chronic fatigue syndrome Obesity Open-angle glaucoma Hypothyroidism Hypertensive disorder Surgical History H/O ureteroscopy Hx of section x 2 H/O tubal ligation Hx of cholecystectomy H/O: hysterectomy H/O bilateral oophorectomy History of carpal tunnel release Umbilical hernia repair of recurrent incarcerated H/O hernia repair Family History Mother Pulmonary fibrosis ILD (interstitial lung disease) Sister History of lobectomy of lung partial Social History Smoking/Tobacco Use Status: Former Tobacco Use Quit Date: 07/17/85 Smoking risk assessment performed?: Yes Alcohol Intake: never Drug use: Never Substance use type: does not use Housing: other Do you feel safe at home: Yes Do you feel safe in your relationship?: Yes Time Spent with Patient Time Spent with Patient: <45 minutes Time was spent: preparing to see the patient(eg.review tests), obtaining and/or reviewing separately otained hiistory, ordering medications,tests, procedures, referring, communicating with other health customer care assistant, indepentently interpreting results, counseling the patient and care coordination
== END 2024-05-13 13:29 | disposition home or self-care (01) | DRG 189 ==
LOC: ER 12:34 → MS 14:12
PROVIDERS: Admitting Provider Family Medicine; Emergency Provider Emergency Medicine; PCP Nurse Practitioner; Visit Provider Family Medicine
DX: J96.21 Acute and chronic respiratory failure with hypoxia (principal); E66.2 Morbid (severe) obesity with alveolar hypoventilation; I50.20 Unspecified systolic (congestive) heart failure; I27.20 Pulmonary hypertension, unspecified; Z68.38 Body mass index [BMI] 38.0-38.9, adult; E11.9 Type 2 diabetes mellitus without complications; Z99.81 Dependence on supplemental oxygen; J98.4 Other disorders of lung; E78.1 Pure hyperglyceridemia; M79.7 Fibromyalgia; E03.9 Hypothyroidism, unspecified; F41.9 Anxiety disorder, unspecified; Z79.84 Long term (current) use of oral hypoglycemic drugs; E21.3 Hyperparathyroidism, unspecified
CPT/HCPCS: 00123; 36415; 36416; 71275; 80048; 80053; 82805; 82962; 85027; 87637; 93005; 93306; 96365; 96375; 99291; J1650; 83735; 83880; 84484; 85025; 93010; 94760; 99223; 99239; J0456; J0696; J1940; J3490

== ENCOUNTER 2024-05-21 01:32 | Outpatient (CLI) | payer MEDICARE, OTHER, SELFPAY ==
--- NOTE | 2024-05-21 14:15 | DI.US_ITS ---
Exam(s) US RENAL EXAM: US RENAL CLINICAL HISTORY: monitoring calculi,NEPHROLITHIASIS,N20.0. TECHNIQUE: Wilson scale, color and spectral Doppler were used. COMPARISON: CT CT RENAL COLIC WO from 07/21/2022 US US RENAL from 11/15/2023 FINDINGS: Right kidney: 12.0cm Echogenicity: Mildly increased which could indicate medical renal disease. Contour mildly lobulated Hydronephrosis: No Cyst or mass: None Nephrolithiasis: 9 millimeter calcification noted in the midpole. A few other smaller stones are not ed at the upper, mid and lower poles. Left kidney: 12.2cm, lobulated contour. Echogenicity: Increased echogenicity which could indicate medical renal disease. Hydronephrosis: No Cyst or mass: 2.7 centimeters cyst upper pole, 1.4 centimeters cyst lower pole. Nephrolithiasis: 4 millimeters cyst lower pole. Bladder:Normal. Prevoid vol:152 cc Postvoid vol:3 cc IMPRESSION: Bilateral nephrolithiasis. Small left renal cysts. No hydronephrosis. Increased renal echogenicity motion in the medical renal disease. DATA REPOSITORY:
== END 2024-05-21 01:52 ==
LOC: DI 01:32
PROVIDERS: PCP Nurse Practitioner; Visit Provider Nurse Practitioner Gerontology
DX: N20.0 Calculus of kidney (principal)
CPT/HCPCS: 76770

== ENCOUNTER → 2024-05-22 12:54 | Outpatient (BNVA) | payer MEDICARE, OTHER, SELFPAY | PROVIDERS: PCP Nurse Practitioner; Referring Provider Nurse Practitioner; Visit Provider Nurse Practitioner Gerontology | DX: N20.0 Calculus of kidney (principal) | CPT/HCPCS: 99214 ==

== ENCOUNTER 2024-12-24 01:33 | Outpatient (CLI) | payer MEDICARE, OTHER, SELFPAY ==
--- NOTE | 2024-12-24 07:15 | DI.US_ITS ---
Exam(s) US RENAL EXAM: US RENAL CLINICAL HISTORY: monitoring calculi,NEPHROLITHIASIS,N20.0 TECHNIQUE: Ultrasound of both kidneys performed using standard protocol. COMPARISON: US US RENAL from 05/21/2024 FINDINGS: RIGHT KIDNEY: Measures 12 cm in length. Small cysts again noted. Also multiple calculi ranging to 11 mm size. Mil d dilatation of the upper collecting system noted. Decreased corticomedullary differentiation LEFT KIDNEY: Measures 1.7 cm in length. Small cysts noted no solid lesions. Multiple calculi ranging up to mm si ze. Mild dilatation of the upper collecting system. Decreased corticomedullary differentiation. URINARY BLADDER: Prevoid volume is 68 cc Postvoid volume is 6 cc No evidence of bladder mass nor diverticuli. Ureterovesical jets: Both identified and appear symmetrical IMPRESSION: 1. Again noted is bilateral nephrolithiasis and small renal cysts. There is increased echogenicity of the kidneys which probably indicates an element of medical renal disease. 2. Mild dilatation of the upper collecting systems. No prominent hydronephrosis. DATA REPOSITORY:
== END 2024-12-24 01:53 ==
LOC: DI 01:33
PROVIDERS: PCP Nurse Practitioner; Visit Provider Nurse Practitioner Gerontology
DX: N20.0 Calculus of kidney (principal)
CPT/HCPCS: 76770

== ENCOUNTER → 2024-12-31 15:17 | Outpatient (BNVA) | payer MEDICARE, OTHER, SELFPAY | PROVIDERS: PCP Nurse Practitioner; Referring Provider Nurse Practitioner; Visit Provider Nurse Practitioner Gerontology | DX: N20.0 Calculus of kidney (principal) | CPT/HCPCS: 99214 ==